=== PATIENT | male | born 1970 | race Asian ===

== ENCOUNTER → 2017-09-01 10:53 | Outpatient (CLI) | payer BC, SELFPAY ==
[2017-09-01 11:29] LABS: Bacteria 0 SEEN /hpf (None Seen); Mucous, Urine 0 SEEN /hpf (<or=2+); White Blood Cells 0 SEEN /hpf (0-5)
[2017-09-01 11:40] LABS: Color, Urine Yellow (Yellow); Glucose, Dipstick Normal (Normal); Ketone-Dipstick 5 mg/dl (Negative); Leukocyte Esterase-Dipstick Negative /ul (Negative); Nitrite-Dipstick Negative (Negative); Occult Blood-Urine 25 /ul (Negative); Protein-Dipstick Negative (Negative); Urine Bilirubin Dipstick Negative (Negative); Urine Clarity Clear (Clear); Urine Urobilinogen Normal (Normal)
[2017-09-01 11:54] LABS: Red Blood Cells-Urine 0-5 SEEN /hpf (0-5); Squamous Epithelial Cells - UA 0-5 SEEN /hpf (0-5)
== END ==
PROVIDERS: Family Provider Internal Medicine; PCP Internal Medicine; Visit Provider Internal Medicine
DX: N39.0 Urinary tract infection, site not specified (principal)
CPT/HCPCS: 81001

== ENCOUNTER → 2017-09-04 09:20 | Outpatient (CLI) | payer BC, MEDICAID, SELFPAY ==
[2017-09-04 13:09] LABS: Chlamydia Trachomatis by PCR Negative (Negative); Neisserai gonorrhoeae by PCR Negative (Negative); Probe Check PASS; Sample Adequacy Control PASS; Specimen Processing Control PASS
== END ==
PROVIDERS: Family Provider Internal Medicine; PCP Internal Medicine; Visit Provider Internal Medicine
DX: N48.89 Other specified disorders of penis (principal); R30.9 Painful micturition, unspecified
CPT/HCPCS: 87491; 87591

== ENCOUNTER → 2018-02-15 08:17 | Outpatient (CLI) | payer OTHER, MEDICAID, SELFPAY ==
--- NOTE | 2018-02-15 08:20 | RAD_ITS ---
STUDY: X-RAY - RIGHT KNEE REASON FOR EXAM: Male, 47 years old. Lateral knee pain. TECHNIQUE: 4 weightbearing view(s) of the knee. COMPARISON: None available. FINDINGS: Normal visualized distal femur. Normal visualized proximal tibia and fibula. Normal proximal tibiofibular articulation. Normal medial femorotibial compartment. Normal lateral femorotibial compartment. Normal patellofemoral articulation. The soft tissue structures visualized appear nonacute. No suprapatellar joint effusion identified. RAD/Knee 4 or More Views IMPRESSION: Nonacute x-ray examination of the knee. If symptoms persist, recommend repeat exam in 14 days to demonstrate any radiographic occult fracture. Electronically Signed: Irving Nguyen, at 13:49 EDT Tel , Service support ,
== END ==
PROVIDERS: Family Provider Internal Medicine; PCP Internal Medicine; Visit Provider Physician Assistant
DX: M25.561 Pain in right knee (principal)
CPT/HCPCS: 73564

== ENCOUNTER 2018-04-14 10:00 | Outpatient (RCR) | payer OTHER, MEDICAID, SELFPAY ==
--- NOTE | 2018-03-02 09:11 | HP.PTEVAL ---
Patient's Visit Information SOFIYA ANDERSON is a 47 year old M referred to Physical Therapy by ETHEL Wharton with a diagnosis of R IT band syndrome. Date of Evaluation: 03/02/18 Physical Therapist: Christopher Austin PT, - Visit Plan Frequency: 2x /Week Duration: 3 Weeks Plan: B LE stretching (IT band), B LE strengthening, core stab ex's, bike, HEP - Subjective Subjective: Pt reports he has had R hip pain for a long time. Pt reports he also has L hip pain, and LBP. Pt reports he stands most of his day at work, and believes this may be causing his pain. Pt also reports he has difficulty with squatting activity secondary to lateral R knee pain. Pt reports he has to rub out that area in order to stand up after squatting. Pt reports he has had xrays taken on the knee which had no positive findings. No sleep difficulty secondary to pain. No PMHx. Pt reports his R leg is shorter than his L. 0/10 pain at rest, 2/10 pain at rest. - Pain R hip Pain Intensity (Out of 10): 0 Pain Intensity Range: 2 - Objective Neuro: B LE sensation is WNL to light touch. B patellar reflex= 2/3. Palpation: Pt is sore on the lateral aspect of R knee. Obvious crepitus with AROM. No obvious deformity. ROM: B LE's are WNL. MMT: B LE's are 4+/5. Special tests: No positive findings this date - Goals Goal 1:: Decrease R hip pain x 50% to aid with IADL's Goal Time Frame: 2-4 Weeks Goal 2:: Increase R LE flexibility x 1 grade to aid with decreasing pain Goal Time Frame: 2-4 Weeks Goal 3:: I with HEP Goal Time Frame: 2-4 Weeks - Rehabilitation Potential Physical Therapy Diagnosis: Pt has R hip pain, weakness, and diff with prolonged standing secondary to R IT band syndrome Rehabilitation Potential: Good - Anticipated Interventions Patient/Client Instruction: Educate patient on: Condition, Plan of Care For the Purpose of:: To improve self management Therapeutic Exercise to Include: Strength training, Endurance training, Postural training, Flexibilty training, Dynamic Lumbar Stabilization For the Purpose of:: To decrease pain, To improve muscle performance and motor function Cryotherapy (ice pack, ice massage): Yes Thermo therapy (hot pack): Yes Ultrasound (thermal/non thermal): Yes For the Purpose of:: To decrease pain Thank you for the opportunity to evaluate your patient. For Medicare and Medicare HMO plans, please review the plan of care and approve it. It will need to be FAXED BACK to us at [phone] for Medicare purposes. Please let me know if there are questions or concerns regarding this plan of care. Physician Signature: Date:
--- NOTE | 2018-06-01 13:55 | HP.PTDCSUM ---
HP - PT D/C Summary It has been my pleasure to treat SOFYIA ANDERSON under orders from ETHEL Wharton, for the diagnosis of R IT band syndrome for a total of 6 visit(s). Discharge Date: Please see the following information for a summary of their discharge status. - Subjective Subjective: Pt is ready for discharge. No pain this date - Pain R hip Pain Intensity (Out of 10): 0 - Overall Improvement % Improvement: 70 - Objective Objective/Function: 0/10 pain at this time. LE flexibility cont's to improve. Pt is I with HEP. Rx goals achieved - Goals Goal 1:: Decrease R hip pain x 50% to aid with IADL's Goal Progress: Goal Met Goal 2:: Increase R LE flexibility x 1 grade to aid with decreasing pain Goal Progress: Goal Met Goal 3:: I with HEP Goal Progress: Goal Met - Plan Plan: Discharge - D/C Information If there are questions or concerns regarding this patient's physical therapy, please feel free to call me at [phone]. Thank you for the referral of this patient. Sincerely, Christopher Austin, PT, ATC
== END 2018-04-14 19:00 | disposition home or self-care (01) ==
LOC: PT 10:00
PROVIDERS: Family Provider Internal Medicine; PCP Internal Medicine; Referring Provider Physician Assistant; Visit Provider Physician Assistant
DX: M76.31 Iliotibial band syndrome, right leg (principal)
CPT/HCPCS: 97110; 97161; 97530

== ENCOUNTER → 2018-12-17 10:50 | Outpatient (CLI) | payer OTHER, SELFPAY ==
[2018-12-17 10:42] VITALS: BMI 32.5
--- NOTE | 2018-12-17 10:50 | RAD_ITS ---
STUDY: X-RAY - RIGHT KNEE REASON FOR EXAM: Male, 48 years old. Atraumatic pain TECHNIQUE: 4 view(s) of the knee. COMPARISON: None. FINDINGS: Normal visualized distal femur. Normal visualized proximal tibia and fibula. Normal proximal tibiofibular articulation. Normal medial femorotibial compartment. Normal lateral femorotibial compartment. Normal patellofemoral articulation. The soft tissue structures are unremarkable. RAD/Knee 4 or More Views IMPRESSION: Normal x-ray examination of the knee. Electronically Signed: Colin Escobedo, at 18:10 EDT Tel , Service support ,
--- NOTE | 2018-12-17 10:50 | RAD_ITS ---
STUDY: X-RAY - LEFT KNEE REASON FOR EXAM: Male, 48 years old. Pain no injury TECHNIQUE: 4 view(s) of the knee. COMPARISON: None. FINDINGS: Normal visualized distal femur. Normal visualized proximal tibia and fibula. Normal proximal tibiofibular articulation. Normal medial femorotibial compartment. Normal lateral femorotibial compartment. Normal patellofemoral articulation. The soft tissue structures are unremarkable. RAD/Knee 4 or More Views IMPRESSION: Normal x-ray examination of the knee. Electronically Signed: Colin Escobedo, at 17:18 EDT Tel , Service support ,
== END ==
PROVIDERS: Family Provider Internal Medicine; PCP Internal Medicine; Referring Provider Physician Assistant; Visit Provider Physician Assistant
DX: M25.562 Pain in left knee (principal)
CPT/HCPCS: 73564

== ENCOUNTER → 2019-06-13 15:38 | Outpatient (CLI) | payer OTHER, SELFPAY ==
[2019-06-07 14:14] VITALS: BMI 31.9
--- NOTE | 2019-06-13 15:38 | CT_ITS ---
STUDY: CT ABDOMEN AND PELVIS WITH CONTRAST REASON FOR EXAM: Male, 48 years old. BILAT GROIN PAIN RADIATION DOSAGE (If Supplied By Facility): CTDIvol = ( 19.83 ) mGy, DLP = ( 1530.79 ) mGycm TECHNIQUE: Transaxial images were obtained from the dome of the diaphragm to the symphysis pubis without oral contrast. Oral and amp; IV Gastrografin and amp; 100mL Isovue-300 was administered. Sagittal and coronal images were reconstructed. Individualized dose optimization techniques were used for this CT. COMPARISON: 08/25/2013. FINDINGS: The visualized lung bases are unremarkable. The visualized portions of the heart are within normal limits. Normal liver. There is non-visualization of the gallbladder, which may be secondary to either contraction or a prior cholecystectomy. Normal spleen. Normal pancreas. Normal bilateral adrenal glands. Normal right kidney. Normal left kidney. Normal visualized stomach. Normal small intestine. Scattered diverticulosis throughout the colon with no signs of diverticulitis. The appendix is visualized and appears normal. Normal abdominal aorta. Normal inferior vena cava. Normal retroperitoneum. Decompressed urinary bladder. Normal visualized prostate gland. Minimal fat-containing umbilical hernia. Normal osseous structures. CT/Abdomen/Pelvis WITH Contrast IMPRESSION: Mild diverticulosis with no signs of diverticulitis. No acute appendicitis or bowel obstruction. Nonvisualized gallbladder, remainder of the abdominal viscera are unremarkable. Electronically Signed: Cristine Grant MD at 4:00 EST , Service support ,
== END ==
PROVIDERS: PCP Internal Medicine; Referring Provider Surgery; Visit Provider Surgery
DX: R10.31 Right lower quadrant pain (principal); R10.32 Left lower quadrant pain
CPT/HCPCS: 74177; Q9967

== ENCOUNTER 2019-07-07 07:57 | Day surgery (SDC) | payer OTHER, SELFPAY ==
[2019-06-07 14:14] VITALS: BMI 31.9
[2019-07-01 15:59] VITALS: BMI 32.8
[2019-07-07] MEDS: Lidocaine Jelly 2% 20 ML Syringe (URO-JET) 20 APPLIC (08:15)
[2019-07-07 08:19] VITALS: BP 137/98; PULSE 72; RESP 16; TEMP 36.3; O2SAT 98
== END 2019-07-07 09:04 | disposition home or self-care (01) ==
LOC: EN 07:57
PROVIDERS: PCP Internal Medicine; Referring Provider Internal Medicine; Visit Provider Surgery
PROC: F00ZJWZ Instrumental Swallowing and Oral Function Assessment using Swallowing Equipment (ICD-10-PCS; CPT 43235; principal; 2019-07-07 07:55)
DX: K21.9 Gastro-esophageal reflux disease without esophagitis (principal)
CPT/HCPCS: 91010

== ENCOUNTER 2019-07-15 06:55 | Day surgery (SDC) | payer OTHER, SELFPAY ==
[2019-06-07 14:14] VITALS: BMI 31.9
[2019-07-01 15:59] VITALS: BMI 32.8
[2019-07-15] VITALS (8 sets, daily range): BP systolic 94–122; BP diastolic 69–91; PULSE 72–98; RESP 16–18; TEMP 36.2–37.1; O2SAT 92–98; BMI 35.0
[2019-07-15] MEDS: Lactated Ringers 1,000 ML 100 ML IV (07:29)
--- NOTE | 2019-07-15 08:00 | IMM_PTH ---
PATIENT: HILL ANDERSON LOC: [facility] U#:[id number] AGE/SX: 49/M ROOM: RE07/15/[address]: Dr. Adrián Thibodeaux MD : 1970 BED: DIS: 07/15/2019 SPEC #: [id number] RECD: 07/15/19 14:57 STATUS: KAYLEE RERossana #: [id number] SHANNON: 07/15/19 08:[address]: Adrián Thibodeaux DEPT: IMMUNOHISTOCHEMISTRY RECD BY: Chasidy Perkins ENTERED: 07/15/19 14:58 SP TYPE: IMMUNO OTHR DR: Dr. Mckinley Villareal MD Tissues: A - Stomach, NOS Procedures: H Pylori (initial) PHYSICIAN & INSTITUTION [place] [address] SPECIMEN INFORMATION: Tissue Source: A - Antrum biopsy Clinical Info: GERD Specimen Number: [id number] CPT code: 76747 METHODOLOGY: Deparaffinized sections of prefer/formalin-fixed tissue or PAP/DQ stained slides are incubated with monoclonal/polyclonal antibodies/oligonucleotide probes. Localization is made via biotin free immunoperoxidase method. Appropriate controls are performed and reacted as expected. Results on target cell population are indicated in the following table: RESULTS: ANTIBODY / CLONE RESULT Block A H Pylori (polyclonal) negative These tests were developed and their performance characteristics determined by [facility]. They may not have been cleared or approved by the U.S. Food and Drug Administration. The FDA has determined that such clearance or approval is not necessary. The above immunohistochemical/dualISH markers are ordered and reviewed by the Pathologist. INTERPRETATION: A. Antrum biopsy: Negative for Helicobacter pylori organisms. AM:kate 07/18/19
--- NOTE | 2019-07-15 08:00 | EGD_PTH ---
PATIENT: HILL ANDERSON LOC: [facility] U#:[id number] AGE/SX: 49/M ROOM: RE07/15/[address]: Dr. Adrián Thibodeaux MD : 1970 BED: DIS: 07/15/2019 SPEC #: [id number] RECD: 07/15/19 13:24 STATUS: KAYLEE SURI #: [id number] SHANNON: 07/15/19 08:[address]: Adrián Thibodeaux DEPT: SURGICAL PATHOLOGY RECD BY: Andres Morris ENTERED: 07/15/19 13:44 SP TYPE: EGD BIOPSY GREG DR: Dr. Mckinley Villareal MD Tissues: A - Gastric mucous membrane B - Esophageal mucous membrane Procedures: Surgery Specimen Level IV HEADER OPERATION: EGD - PH probe ([employer]) PRE-OP DIAGNOSIS: GERD TISSUE SUBMITTED: A - Antrum biopsy for histo and H. pylori, B - Distal esophagus biopsy MICROSCOPIC DIAGNOSIS A. Gastric antrum, biopsy: Chronic gastritis. See comment. B. Distal esophagus, biopsy: Fragments of benign squamous mucosa with focal changes of reflux. AM:kate 07/18/19 COMMENT A. The results of immunohistochemistry for Helicobacter pylori will be reported separately ([id number]). MICROSCOPIC DESCRIPTION Slides are reviewed. GROSS DESCRIPTION A - Received in fixative is one container labeled with the patient's name and designated antrum biopsy. The specimen consists of multiple irregular fragments of light carbajal soft tissue that in aggregate measure 0.6 x 0.3 x 0.1 cm. The specimen is totally submitted in one cassette. B - Received in fixative is one container labeled with the patient's name and designated distal esophagus biopsy. The specimen consists of one irregular fragment of light carbajal soft tissue that measures 0.3 x 0.3 x 0.1 cm. The specimen is totally submitted in one cassette. / SJ:kate 07/15/19 TC:3 CPT: 60826 x2
--- NOTE | 2019-07-15 08:02 | H&P.OPEN ---
History of Present Illness Date of Admission: 07/15/19 The patient is a 49 year old M who has seen me in the office for severe reflux. The patient had manometry performed already and is here for EGD with pH probe. Past Medical/Surgical History - Planned Operation Planned Operative Procedure/s: GD W/ 49 HR PH PROBE PLACEMENT Date of Operative Procedure: 07/15/19 Permit Signed: Yes S.O.S: No - Previous Hospitalizations/Surgeries HX Hospitalizations: No HX of Surgeries: tonsillectomy, appy, gallbladder. COLONOSCOPY/EGD 2017 Any Problems With Anesthesia: No You/Your Family Experience Fever (Hyperthermia) With Anes: No Cholinesterase deficiency: No - Cardiovascular Hx Chest Pain within Last 2 months: No Hx of Irregular Heartbeat and/or Afib: No Hx Heart Attack: No Hx Congestive Heart Failure: No Hx Rheumatic Fever: No Hx Hypertension: No Hx Internal Defibrillator: No Hx Pacemaker: No Hx Cardiac Catheterization: No Hx Cardiac Surgery/Stents/Etc.: No Hx Stress Test: Yes - 2016, [facility], negative HX Edema: No Hx Pain in Legs when Walking/Leg Cramps: No - Respiratory Chronic Cough: No HX of Shortness of Breath: No Hoarseness: No Hx Chronic Obstructive Pulmonary Disease (COPD): No Hx Asthma: No Hx Emphysema: No Hx Sleep Apnea: No Hx Oxygen Use at Home: No Hx Respiratory Tract Infection/Cold (presently): No Do You Snore Loudly (louder than talking or can be heard): Yes Do You Often Feel Tired/ Fatigued/ Sleepy Dring Daytime?: No Has Anyone Observed You Stop Breathing During Sleep?: No Result (for STOP score): Negative Hx Smoking: Yes Smoking Status: Former smoker - Gastrointestinal Hx Gastroesophageal Reflux: Yes Controlled With Meds: Yes - takes omeprazole Hx Gastrointestinal Disorders: - constipation Hx Gastrointestinal Bleed: No Hx Ulcer: Yes Hx Hiatal Hernia: No Difficulty Chewing/Swallowing: No Recent Onset of Swallowing Problems: No Special diet followed at home: No Hx Unplanned Weight Loss of 20#: No HX Unplanned Weight Gain of 20#: No - Neurological Hx Seizures: No HX Syncope/Blackout Spells/Unconsciousness: No Hx CVA/Stroke: No Hx Transient Ischemic Attacks (TIA): No Hx Multiple Sclerosis: No Hx Parkinson's Disease: No Hx Head/Neck Injury: No Hx Headaches: Yes Hx Back Injury/Pain: Yes Recent Onset of Speech Difficulty: No Restless Legs: No Does patient have nerve stimulator: No - Blood Disorder Hx Leukemia: No Bleeding Tendencies: No Hx Deep Vein Thrombosis: No Hx High Cholesterol: No Blood Transmitted Disease: No Hx Hepatitis: No Hx Cirrhosis: No Hx Anemia: No Hx Blood Disorders: No - Genitourinary Hx Renal Disease: No - Musculoskeletal Hx Arthritis: No Hx Rheumatoid Arthritis: No Hx Gout: No Recent Onset of an Orthopedic Problem: No - Endocrine Hx Diabetes: No Thyroid Disease: No Hx Steroid Therapy: No - Psycho/Social Hx Substance Use: No Hx Alcohol Use: No Hx Anxiety: No Hx Depression: No - Miscellaneous Hx Cancer: No Recent Exposure to Contagious Disease: No Active MRSA: No Hx of C-Diff: No Any Loose Teeth: No Allergies No Known Allergies Allergy (Verified 07/15/19 07:18) mother Family History: Family History (Last Reviewed 07/01/19 @ 15:59 by Matt Whittaker) Mother Asthma Hypertension Father Kidney disease CVA (cerebral vascular accident) Daughter Asthma Hypertension father Family History: Family History (Last Reviewed 07/01/19 @ 15:59 by Matt Whittaker) Mother Asthma Hypertension Father Kidney disease CVA (cerebral vascular accident) Daughter Asthma - - Discharge Is Pt Admitted From a Senior Care, or a Residential: No Who Could Help: SMILEY After D/C, Where Do you Plan to Go: Return Home - Physical Exam Vitals/I&O's: Vital Signs Temp Pulse Resp BP Pulse Ox 98.8 F 98 18 122/91 H 98 07/15/19 07:21 07/15/19 07:21 07/15/19 07:21 07/15/19 07:21 07/15/19 07:21 Oxygen Delivery Method Room Air Weight: 216 lb 14.958 oz Body Mass Index (BMI) 35.0 General: Alert, Oriented x3 Neck: No JVD Lungs: Normal air movement Cardiovascular: Regular rate, Regular Rhythm Abdomen: Soft, Non Tender, Non-Distended Current Medications Lactated Ringer's () 1,000 mls @ 100 mls/hr IV .Q10H DELON Last Admin: 07/15/19 07:29 Dose: 100 mls/hr Documented by: Assessment/Plan All Active Problems (Last Reviewed 07/01/19 @ 15:59 by Matt Whittaker) Acute bronchitis (Acute) Micturition painful (Acute) Upper respiratory disease (Acute) Constipation (Acute) 49-year-old male severe GERD 1. Patient have an artery which showed an increased LES pressure as well as decreased swallow function. Plan for EGD with pH probe. 2. I explained endoscopy in detail to the patient. I explained the risks including but not limited to stroke or heart attack with anesthesia, perforation of the GI tract, bleeding, infection. I explained that any of these could necessitate further emergency surgery. The patient understands and all questions were answered sufficiently. The patient wishes to proceed with procedure. Adrián Thibodeaux MD Pager: [facility] [address] [place] [address] [address] [place] [address] Office: Surgery Risks - Colonoscopy Risks Include but are not Limited To: Risks include but are not limited to: Bleeding, perforation requiring further surgery, inability to complete colonoscopy requiring barium enema.
--- NOTE | 2019-07-15 08:26 | OP.CCLET_ITS ---
07/15/2019 Mckinley Villareal MD [address] [place] [address] [place] [address] Re : Upper GI endoscopy procedure for Sánchez Saunders Dear Dr. Villareal This procedure was performed on Monday, July 15, 2019. My impressions and recommendations are as follows: Impressions : - Normal. Biopsied. - Gastritis. Biopsied. - Normal examined duodenum. - The MCCARTHY pH capsule was positioned 36 cm from the incisors, which was 6 cm proximal to the GE junction. Recommendations : - Discharge patient to home. - Resume previous diet. - Continue present medications. - Return to my office in 2 weeks. My findings are described in the full procedure note, which is enclosed. If I can be of further assistance, please feel free to contact me at Doctor phone number(s): , Work: . Sincerely, Adrián Thibodeaux MD 07/15/2019 8:26:25 AM This report has been signed electronically.
--- NOTE | 2019-07-15 08:26 | OP.EGD_ITS ---
Patient Name: Sánchez Saunders Procedure Date: 07/15/2019 7:38 AM Date of : 1970 Age: 49 Procedure: Upper GI endoscopy Indications: Suspected gastro-esophageal reflux disease Providers: Adrián Thibodeaux MD Referring MD: Adrián Thibodeaux MD Medicines: Monitored Anesthesia Care Patient Profile: This is a 49 year old male. Refer to note in patient chart for documentation of history and physical. Complications: No immediate complications. Estimated blood loss: Minimal. Procedure: Pre-Anesthesia Assessment: - Prior to the procedure, a History and Physical was performed, and patient medications and allergies were reviewed. The patient's tolerance of previous anesthesia was also reviewed. The risks and benefits of the procedure and the sedation options and risks were discussed with the patient. All questions were answered, and informed consent was obtained. Prior Anticoagulants: The patient has taken no previous anticoagulant or antiplatelet agents. After reviewing the risks and benefits, the patient was deemed in satisfactory condition to undergo the procedure. After obtaining informed consent, the endoscope was passed under direct vision. Throughout the procedure, the patient's blood pressure, pulse, and oxygen saturations were monitored continuously. The gastroscope was introduced through the mouth, and advanced to the third part of duodenum. The upper GI endoscopy was accomplished without difficulty. The patient tolerated the procedure well. Scope In: 8:10:01 AM Scope Out: 8:15:50 AM Total Procedure Duration Time 0 hours 5 minutes 49 seconds Findings: The in the esophagus was normal. Biopsies were taken with a cold forceps for histology. Moderate inflammation was found in the entire examined stomach. Biopsies were taken with a cold forceps for Helicobacter pylori testing. The examined duodenum was normal. The MCCARTHY capsule with delivery system was introduced through the mouth and advanced into the esophagus, such that the MCCARTHY pH capsule was positioned 36 cm from the incisors, which was 6 cm proximal to the GE junction. Suction was applied to the well of the MCCARTHY pH capsule to suck in the adjacent mucosa of the esophagus using the external vacuum pump set at a minimum vacuum pressure of 550 mmHg for 30 seconds. The MCCARTHY pH capsule was then deployed by depressing the plunger on top of the handle to advance the locking pin into the mucosa, thereby attaching the capsule to the esophagus. The plunger was then rotated a quarter turn clockwise to release the capsule from the delivery system. The delivery system was then withdrawn. Endoscopy was utilized for probe placement and diagnostic evaluation. Impression: - Normal. Biopsied. - Gastritis. Biopsied. - Normal examined duodenum. - The MCCARTHY pH capsule was positioned 36 cm from the incisors, which was 6 cm proximal to the GE junction. Recommendation: - Discharge patient to home. - Resume previous diet. - Continue present medications. - Return to my office in 2 weeks. Procedure Code(s): --- Professional --- 61336, Esophagogastroduodenoscopy, flexible, transoral; with biopsy, single or multiple 03773, 51, Esophagus, gastroesophageal reflux test; with mucosal attached telemetry pH electrode placement, recording, analysis and interpretation Diagnosis Code(s): --- Professional --- K29.70, Gastritis, unspecified, without bleeding CPT copyright 2017 [employer] [place] [employer]. All rights reserved. The codes documented in this report are preliminary and upon paste mixing supervisor review may be revised to meet current compliance requirements. Adrián Thibodeaux MD 07/15/2019 8:26:25 AM This report has been signed electronically. Number of Addenda: 0 Note Initiated On: 07/15/2019 7:38 AM
== END 2019-07-15 09:10 | disposition home or self-care (01) ==
LOC: EN 06:56 → AC 06:57
PROVIDERS: PCP Internal Medicine; Referring Provider Surgery; Visit Provider Surgery
PROC: (CPT 43239; principal; 2019-07-15 07:55)
DX: K29.70 Gastritis, unspecified, without bleeding (principal); K21.9 Gastro-esophageal reflux disease without esophagitis; K59.00 Constipation, unspecified; R30.0 Dysuria; Z87.891 Personal history of nicotine dependence
CPT/HCPCS: 43239; 91035; 88305; 88342; J7120; A4216; J2405

== ENCOUNTER → 2019-11-01 10:38 | Outpatient (CLI) | payer OTHER, SELFPAY ==
[2019-11-01 09:59] VITALS: BMI 35.0
--- NOTE | 2019-11-01 10:40 | RAD_ITS ---
STUDY: X-RAY - LUMBAR SPINE REASON FOR EXAM: Male, 49 years old. Lumbar radiculopathy TECHNIQUE: 3 view(s) of the lumbar spine were obtained. COMPARISON: None FINDINGS: Normal lumbar lordosis. There is no substantial scoliosis. There is a normal alignment of the vertebrae. Normal vertebral bodies and endplates. Normal disc space heights. The soft tissue structures are unremarkable. RAD/Lumbar Spine 2 or 3 Views IMPRESSION: Normal x-ray examination of the lumbar spine. Electronically Signed: Jude Ramon MD at 11:13 EDT , Service support ,
--- NOTE | 2019-11-01 10:40 | RAD_ITS ---
STUDY: X-RAY - CERVICAL SPINE REASON FOR EXAM: Male, 49 years old. Chronic neck pain TECHNIQUE: 3 view(s) of the cervical spine were obtained. COMPARISON: None FINDINGS: Normal anterior atlantoaxial articulation. Normal odontoid process. Normal cervical lordosis. Normal vertebral bodies and endplates. Normal disc space heights. Normal visualized intervertebral neuroforamina. The soft tissue structures are unremarkable. RAD/Cerv Spine 2 or 3 Views IMPRESSION: Normal x-ray examination of the visualized cervical spine. Electronically Signed: Jude Ramon MD at 11:13 EDT , Service support ,
== END ==
PROVIDERS: PCP Internal Medicine; Referring Provider Internal Medicine; Visit Provider Internal Medicine
DX: M54.2 Cervicalgia (principal); G89.29 Other chronic pain; M54.16 Radiculopathy, lumbar region
CPT/HCPCS: 72040; 72100

== ENCOUNTER → 2020-07-12 10:48 | Outpatient (CLI) | payer OTHER, SELFPAY ==
[2020-07-12 10:23] VITALS: BMI 36.6
[2020-07-12 12:17] LABS: Erythrocyte Sedimentation Rate 30 mm/hr (0-20)
[2020-07-12 12:19] LABS: Absolute Lymphocyte Count 2.03 X10^3/uL (0.83-4.51); Absolute Neutrophil Count 2.3 X10^3/uL (2.0-7.7); Basophil# 0.04 X10^3/uL; Basophil% 0.8 % (0-1); Eosinophil# 0.22 X10^3/uL; Eosinophils% 4.4 % (0-5); Hematocrit 44.5 % (40-54); Hemoglobin 15.2 g/dL (13.0-16.5); Lymphocyte # 2.03 X10^3/ul (4.0); Lymphocyte % 40.6 % (19-41); Mean Corp Hgb Conc 34.2 g/dL (32-36); Mean Corpuscular Hgb 29.2 pg (27.0-32.0); Mean Corpuscular Volume 85.4 fL (80-94); Mean Platelet Vol. 10.5 fl (6.2-12.0); Monocyte# 0.43 X10^3/uL; Monocyte% 8.6 % (0-10); NRBC Flagged by Analyzer 0 % (0-5); Neutrophil # 2.27 X10^3/uL (2.7-7.7); Neutrophil % 45.4 % (47-70); Platelet Count 256 K/mm3 (150-450); RBC Distribution Width CV 13.5 % (11.6-14.6); RBC Distribution Width SD 41.5 fl (35.1-43.9); Red Blood Count 5.21 M/mm3 (4.6-6.2)
[2020-07-12 12:29] LABS: ALB/GLOB Ratio 0.9 RATIO (0.9-2.4); AST(SGOT) 19 U/L (15-37); Alanine Aminotransfer ALT/SGPT 40 U/L (16-61); Albumin, Serum 3.7 g/dL (3.2-5.0); Alkaline Phosphatase 79 U/L (45-117); Anion Gap 6 (5-15); BUN 16 mg/dL (7-18); BUN/Creat Ratio 14.3 RATIO (10-20); CRP 5.13 mg/L (0.0-3.0); Calcium,Total 8.9 mg/dL (8.5-10.1); Chloride 108 mmol/L (98-107); Cholesterol 226 mg/dL (200); Creatinine, Serum 1.12 mg/dL (0.70-1.30); EST Glomerular Filtration Rate 74 mL/min (>60); Est Glom Filt Rate - Afr Amer 90 mL/min (>60); Globulin 4.1 g/dL (2.2-4.2); Glucose 109 mg/dL (74-106); High Density Lipoprotein 33 mg/dL; Protein, Total 7.8 g/dL (6.4-8.2); Rheumatoid Factor < 10.0 IU/mL (<15); Sodium Level 139 mmol/L (136-145); Thyroid Stim Hormone (TSH) 3.56 uIU/mL (0.358-3.74); Triglycerides 202 mg/dL; Very Low Density Lipoprotein 40 mg/dL (5-40)
[2020-07-12 12:53] LABS: Vitamin D,25 Hydroxy 11.8 ng/mL
[2020-07-13 16:37] LABS: ANTINUCLEAR ANTIBODIES DIRECT Negative (Negative)
== END ==
PROVIDERS: PCP Internal Medicine; Referring Provider Nurse Practitioner Family; Visit Provider Nurse Practitioner Family
DX: Z00.00 Encounter for general adult medical examination without abnormal findings (principal); F41.8 Other specified anxiety disorders; M25.50 Pain in unspecified joint
CPT/HCPCS: 36415; 80053; 80061; 82306; 84443; 85025; 85652; 86038; 86140; 86225; 86235; 86431

== ENCOUNTER 2021-07-16 10:12 | Outpatient (CLI) | payer OTHER, SELFPAY ==
[2021-07-16 12:27] LABS: Absolute Lymphocyte Count 1.83 X10^3/uL (0.83-4.51); Absolute Neutrophil Count 2.7 X10^3/uL (2.0-7.7); Basophil# 0.02 X10^3/uL; Basophil% 0.4 % (0-1); Eosinophil# 0.33 X10^3/uL; Eosinophils% 6.1 % (0-5); Hematocrit 44.8 % (40-54); Hemoglobin 14.7 g/dL (13.0-16.5); Lymphocyte # 1.83 X10^3/ul (0.83-4.51); Mean Corp Hgb Conc 32.8 g/dL (32-36); Mean Corpuscular Hgb 28.7 pg (27.0-32.0); Mean Corpuscular Volume 87.5 fL (80-94); Mean Platelet Vol. 10.2 fl (6.2-12.0); Monocyte% 9.3 % (0-10); NRBC Flagged by Analyzer 0 % (0-5); Neutrophil # 2.69 X10^3/uL (2.7-7.7); Platelet Count 255 K/mm3 (150-450); RBC Distribution Width CV 13.8 % (11.6-14.6); Red Blood Count 5.12 M/mm3 (4.6-6.2); White Blood Count 5.4 K/mm3 (4.4-11.0)
[2021-07-16 13:24] LABS: ALB/GLOB Ratio 0.9 RATIO (0.9-2.4); AST(SGOT) 19 U/L (15-37); Alanine Aminotransfer ALT/SGPT 38 U/L (16-61); Albumin, Serum 3.6 g/dL (3.2-5.0); Alkaline Phosphatase 75 U/L (45-117); Anion Gap 2 (5-15); BUN 13 mg/dL (7-18); BUN/Creat Ratio 10.5 RATIO (10-20); Calcium,Total 8.9 mg/dL (8.5-10.1); Chloride 108 mmol/L (98-107); Cholesterol 201 mg/dL (200); Creatinine, Serum 1.24 mg/dL (0.70-1.30); EST Glomerular Filtration Rate 66 mL/min (>60); Est Glom Filt Rate - Afr Amer 79 mL/min (>60); Globulin 4.1 g/dL (2.2-4.2); Glucose 120 mg/dL (74-106); High Density Lipoprotein 26 mg/dL; Potassium 4.4 mmol/L (3.5-5.1); Protein, Total 7.7 g/dL (6.4-8.2); Sodium Level 138 mmol/L (136-145); Thyroid Stim Hormone (TSH) 2.67 uIU/mL (0.358-3.74); Triglycerides 435 mg/dL
== END 2021-07-16 23:59 | disposition home or self-care (01) ==
LOC: BIMLAB 10:13
PROVIDERS: PCP Internal Medicine; Referring Provider Nurse Practitioner Family; Visit Provider Nurse Practitioner Family
DX: Z00.00 Encounter for general adult medical examination without abnormal findings (principal); Z12.5 Encounter for screening for malignant neoplasm of prostate
CPT/HCPCS: 36415; 80053; 80061; 84153; 84443; 85025; G0103

== ENCOUNTER → 2021-12-11 | Outpatient (CLI) | payer OTHER, SELFPAY ==
--- NOTE | 2021-12-11 10:06 | RAD_ITS ---
INDICATION: chronic hip pain EXAMINATION/TECHNIQUE: X-RAY - BILATERAL XR Hips Bilateral with Pelvis when performed; 2 Views COMPARISON: None. FINDINGS: PELVIC BONES: No displaced fracture, destructive or sclerotic lesions. Note that overlapping bowel shadows may however obscure fine detail. Sacroiliac joints are unremarkable. No widening of the pubic symphysis. HIPS: The articular structures are unremarkable. No displaced fracture seen in this frontal view. SOFT TISSUES: No soft tissue swelling or gas. RAD/Hips B/L min 2 views w/ Pelvis IMPRESSION: No evidence of displaced pelvic or hip fracture. Electronically Signed: Levon Daniels MD at 13:00 EDT ,
== END | disposition home or self-care (01) ==
LOC: MTRAD 10:05
PROVIDERS: PCP Internal Medicine; Referring Provider Nurse Practitioner Family; Visit Provider Nurse Practitioner Family
DX: M25.559 Pain in unspecified hip (principal); G89.29 Other chronic pain
CPT/HCPCS: 73521

== ENCOUNTER → 2022-02-11 | Outpatient (CLI) | payer OTHER, SELFPAY ==
--- NOTE | 2022-02-11 07:52 | US_ITS ---
STUDY: SCROTUM ULTRASOUND REASON FOR EXAM: Male, 51 years old. Bilateral testicular pain, left greater than right. TECHNIQUE: Ultrasound evaluation of the scrotum was performed with color Doppler and static holguin-scale imaging. COMPARISON: Testicular ultrasound, 08/12/2013. FINDINGS: RIGHT TESTICLE INTRATESTICULAR: There is a normal size of the right testicle. The right testicle measures 4.3 x 3.2 x 2.6 cm. There is a homogenous echotexture. There is normal arterial and normal venous vascularity. There is no demonstrated right testicular mass or cyst. EXTRATESTICULAR: The epididymis is normal in size. The epididymis head measures 0.5 x 1.1 x 1.0 cm. There is normal vascularity of the epididymis. There is no demonstrated epididymal cystic structure. There is a small hydrocele. There is no demonstrated varicocele. There is no demonstrated extratesticular mass or cyst. LEFT TESTICLE INTRATESTICULAR: There is a normal size of the left testicle. The left testicle measures 3.9 x 2.5 x 2.3 cm. There is a heterogeneous echotexture. There is normal arterial and normal venous vascularity. There is no demonstrated left testicular mass or cyst. EXTRATESTICULAR: Nonvisualization the epididymal head. Patient relates a history of surgery on his left epididymis is unsure of what the procedure in detail. There is no demonstrated epididymal cystic structure. There is a small hydrocele. There is no demonstrated varicocele. There is no demonstrated extratesticular mass or cyst. US/Testicular with Arterial Flow IMPRESSION: 1. Normal right testicle and epididymis. 2. Heterogenous left testicle without distinct mass. 3. Nonvisualization of the left epididymal head. 4. Small left hydrocele. Electronically Signed: Aron Joy DO at 17:00 EDT ,
== END | disposition home or self-care (01) ==
LOC: US 07:43
PROVIDERS: PCP Internal Medicine; Visit Provider Nurse Practitioner Family
DX: N50.811 Right testicular pain (principal); N50.812 Left testicular pain; N43.3 Hydrocele, unspecified; G89.29 Other chronic pain
CPT/HCPCS: 76870; 93976

== ENCOUNTER → 2022-05-28 | Outpatient (CLI) | payer BC, SELFPAY ==
--- NOTE | 2022-05-28 15:25 | RAD_ITS ---
STUDY: X-RAY CHEST REASON FOR EXAM: Male, 51 years old. One month history of dry cough. TECHNIQUE: PA and lateral views of the chest. COMPARISON: Comparison is made with prior study dated 09/10/2015. FINDINGS: The lungs are clear and expanded. There is no demonstrated pleural abnormality. Normal size heart. Normal mediastinum and alisa. Normal visualized pulmonary arteries. Normal visualized aortic arch and descending thoracic aorta. Normal visualized thoracic spine. Normal visualized ribs, clavicles, and shoulders. There is no demonstrated abnormality of the visualized soft tissue structures of the upper abdomen. RAD/Chest PA and Lateral IMPRESSION: Normal x-ray examination of the chest. Electronically Signed: Henry Diallo MD at 15:39 EST ,
== END | disposition home or self-care (01) ==
PROVIDERS: PCP Internal Medicine; Referring Provider Nurse Practitioner Family; Visit Provider Nurse Practitioner Family
DX: R05.9 Cough, unspecified (principal)
CPT/HCPCS: 71046

== ENCOUNTER → 2024-01-21 | Outpatient (CLI) | payer BC, SELFPAY ==
[2024-01-21 12:40] LABS: Absolute Lymphocyte Count 1.69 X10^3/uL (0.83-4.51); Absolute Neutrophil Count 2.3 X10^3/uL (2.0-7.7); Basophil# 0.03 X10^3/uL; Basophil% 0.6 % (0-1); Eosinophil# 0.43 X10^3/uL; Eosinophils% 8.9 % (0-5); Hemoglobin 14.6 g/dL (13.0-16.5); Lymphocyte # 1.69 X10^3/ul (0.83-4.51); Lymphocyte % 34.8 % (19-41); Mean Corp Hgb Conc 33.2 g/dL (32-36); Mean Corpuscular Hgb 28.1 pg (27.0-32.0); Mean Corpuscular Volume 84.6 fL (80-94); Mean Platelet Vol. 9.9 fl (6.2-12.0); Monocyte# 0.41 X10^3/uL; Monocyte% 8.5 % (0-10); NRBC Flagged by Analyzer 0 % (0-5); Neutrophil # 2.28 X10^3/uL (2.7-7.7); Platelet Count 239 K/mm3 (150-450); RBC Distribution Width CV 13.9 % (11.6-14.6); RBC Distribution Width SD 43.3 fl (35.1-43.9); White Blood Count 4.9 K/mm3 (4.4-11.0)
[2024-01-21 13:04] LABS: ALB/GLOB Ratio 0.9 RATIO (0.9-2.4); AST(SGOT) 20 U/L (15-37); Alanine Aminotransfer ALT/SGPT 26 U/L (16-61); Albumin, Serum 3.7 g/dL (3.2-5.0); Alkaline Phosphatase 79 U/L (45-117); Anion Gap 7 (5-15); BUN 12 mg/dL (7-18); BUN/Creat Ratio 11.5 RATIO (10-20); Calcium,Total 9.3 mg/dL (8.5-10.1); Chloride 108 mmol/L (98-107); Cholesterol 206 mg/dL (200); Creatinine, Serum 1.04 mg/dL (0.70-1.30); EST Glomerular Filtration Rate 80 mL/min (>60); Est Glom Filt Rate - Afr Amer 96 mL/min (>60); Globulin 4.1 g/dL (2.2-4.2); Glucose 107 mg/dL (74-106); High Density Lipoprotein 38 mg/dL; PSA,Total - Annual Screen 0.52 ng/mL (0.00-4.00); Potassium 4.3 mmol/L (3.5-5.1); Protein, Total 7.8 g/dL (6.4-8.2); Sodium Level 141 mmol/L (136-145); Triglycerides 157 mg/dL; Very Low Density Lipoprotein 31 mg/dL (5-40)
[2024-01-21 13:12] LABS: Microalbumin,Random Urine 20.9 mg/L (NO RANGE EST.)
== END | disposition home or self-care (01) ==
PROVIDERS: PCP Nurse Practitioner Family; Visit Provider Nurse Practitioner Family
DX: Z00.00 Encounter for general adult medical examination without abnormal findings (principal); E11.9 Type 2 diabetes mellitus without complications; Z12.5 Encounter for screening for malignant neoplasm of prostate
CPT/HCPCS: 36415; 80053; 80061; 82043; 84153; 84443; 85025; G0103

== ENCOUNTER → 2024-12-27 | Outpatient (CLI) | payer BC, SELFPAY ==
[2024-12-27 16:49] LABS: Hematocrit 43.8 % (40-54); Hemoglobin 14.9 g/dL (13.0-16.5); Immature Granulocytes Count 0.010 X10^3/uL (0.0-0.0); Mean Corp Hgb Conc 34.0 g/dL (32-36); Mean Corpuscular Volume 84.4 fL (80-94); Mean Platelet Vol. 9.7 fl (6.2-12.0); NRBC Flagged by Analyzer 0 % (0-5); Platelet Count 233 K/mm3 (150-450); RBC Distribution Width CV 14.1 % (11.6-14.6); RBC Distribution Width SD 42.9 fl (35.1-43.9); Red Blood Count 5.19 M/mm3 (4.6-6.2); White Blood Count 6.6 K/mm3 (4.4-11.0)
[2024-12-27 17:44] LABS: Microalbumin,Random Urine 23.7 mg/L (<20 mg/L)
[2024-12-27 17:53] LABS: AST(SGOT) 22 U/L (<=37); Alanine Aminotransfer ALT/SGPT 21 U/L (<=46); Albumin, Serum 4.2 g/dL (3.5-5.0); Alkaline Phosphatase 77 U/L (40-129); Anion Gap 13 (5-15); BUN 16 mg/dL (4-19); BUN/Creat Ratio 14.1 RATIO (10-20); Calcium,Total 9.2 mg/dL (7.6-11.0); Carbon Dioxide 22.2 mmol/L (21.0-32.0); Chloride 104 mmol/L (98-108); Cholesterol 204 mg/dL (<=200); Color, Urine Yellow (Yellow); Globulin 3.4 g/dL (2.2-4.2); Glucose 93 mg/dL (70-99); Glucose, Dipstick 1000 mg/dl (Normal); Ketone-Dipstick Negative (Negative); Leukocyte Esterase-Dipstick Negative /ul (Negative); Low Density Lipoprotein Calc. 131 mg/dL; Nitrite-Dipstick Negative (Negative); Occult Blood-Urine 150 /ul (Negative); Potassium 4.1 mmol/L (3.3-5.1); Protein-Dipstick 15 mg/dl (Negative); Specific Gravity, Urine 1.025 (1.002-1.030); Triglycerides 180 mg/dL; Urine Bilirubin Dipstick Negative (Negative); Very Low Density Lipoprotein 36 mg/dL (5-40); cholesterol:hdl ratio screen 5.54
--- OUTSIDE RECORDS SUMMARY | 2024-12-27 22:03 | XMS RPT_ITS | CCD ---
Author Organization [facility] Care Team Providers Care Quality Assurance Tech Name Role Phone Dr. Mckinley Villareal Primary Care Provider [phone] Dr. Mckinley Villareal Referring Provider [phone] Jay Jay [employer], [employer]-C Ronak Attending Provider [phone] Dr. Mckinley Villareal Primary Care Provider [phone] Dr. Mckinley Villareal Referring Provider [phone] ETHEL Helton Attending Provider Jay Jay [employer], [employer]-C Ronak Attending Provider [phone] Self, Referral Referring Unavailable COURTNEY OCHOA Attending Unavaila Ronak Alan Attending Unavailable Ronak Smith Primary Care Unavailable Medications Current Medications Medication Drug Class(es) Dates Sig (Normalized) Sig (Original) acetaminophen 325 mg oral tablet (3 sources) Start: 07-16-2021 take 1 tablet by mouth once Acetaminophen (Tylenol) 325 mg tablet Active 325 MG PO ONCE July 16, 2021 12:00am [id number] actuat albuterol 0.09 mg/actuat metered dose inhaler (1 source) beta2-Adrenergic Agonist Start: 04-30-2022 take 1 puff(s) by inhalation every six hours Albuterol Sulfate (Proair Hfa) 90 mcg/actuation HFA aerosol inhaler Active 1 - 2 PUFF INHALATION EVERY 6 HOURS 8.5 April 30, 2022 12:00am gabapentin 100 mg oral capsule (6 sources) Anti-epileptic Agent Start: 05-08-2020 End: 02-03-2021 take 100 mg by mouth three times daily Gabapentin Active 100 MG PO THREE TIMES A DAY June 13, 2020 10:05am meloxicam 15 mg oral tablet (11 sources) Nonsteroidal Anti-inflammatory Drug Start: 02-10-2022 End: 05-26-2022 take 15 mg by mouth once daily Meloxicam Active 15 MG PO DAILY May 26, 2022 11:48am STOP ALL OTHER NSAIDS Start: 01-13-2020 End: 05-08-2020 take 15 mg by mouth once daily Meloxicam Discontinued 15 MG PO DAILY January 12, 2020 11:00pm May 08, 2020 10:02am Start: 12-17-2018 End: 04-04-2019 take 1 tablet by mouth once daily Meloxicam (Mobic) 15 mg tablet Discontinued 15 MG PO DAILY December 16, 2018 11:00pm April 04, 2019 9:52am Stop all other NSAIDs methylPREDNISolone 4 mg oral tablet (7 sources) Corticosteroid Start: 04-30-2022 take 1 tablet by mouth once Methylprednisolone (Medrol (Gio)) 4 mg tablets,dose pack Active 0 PO per package directions April 30, 2022 12:00am PO PER PKG DIR Start: 10-04-2020 End: 07-16-2021 take 1 tablet by mouth once Methylprednisolone (Medrol (Gio)) 4 mg tablets,dose pack Discontinued 0 PO per package directions October 03, 2020 11:00pm July 16, 2021 9:36am PO PER PKG DIR Start: 07-01-2019 End: 07-06-2019 take 1 tablet by mouth once Methylprednisolone (Medrol (Gio)) 4 mg tablets,dose pack Discontinued 4 MG PO per package directions 28 09July 01, 2019 12:00am July 06, 2019 12:08am Tens Unit And Electrodes (3 sources) Start: 07-19-2020 Tens Unit And Electrodes Active 0 .ROUTE .MEDSUPPLY July 19, 2020 10:42am As directed Start: 07-19-2020 Tens Unit And Electrodes Active 0 .ROUTE .MEDSUPPLY July 19, 2020 12:00am As directed Start: 07-19-2020 Tens Unit And Electrodes Active 0 .ROUTE .MEDSUPPLY July 19, 2020 1:00am As directed Completed/Discontinued Medications Medication Drug Class(es) Dates Sig (Normalized) Sig (Original) amoxicillin 875 mg oral tablet (3 sources) Penicillin-class Antibacterial Start: 01-31-2020 End: 02-10-2020 take 875 mg by mouth twice daily Amoxicillin Discontinued 875 MG PO TWICE A DAY 27 02January 30, 2020 11:00pm February 09, 2020 11:03pm baclofen 10 mg oral tablet (6 sources) gamma-Aminobutyric Acid-ergic Agonist Start: 11-01-2019 End: 01-13-2020 take 10 mg by mouth at bedtime Baclofen Discontinued 10 MG PO AT BEDTIME December 09, 2019 1:59pm January 13, 2020 9:36am cholecalciferol 1.25 mg oral capsule (3 sources) Vitamin D Start: 07-17-2020 End: 10-04-2020 take 1250 ug by mouth every week Cholecalciferol (Vitamin D3) Discontinued 1250 MCG PO EVERY WEEK July 17, 2020 12:00am October 04, 2020 9:17am doxycycline hyclate 100 mg oral tablet (2 sources) Tetracycline-class Drug Start: 02-16-2022 End: 04-30-2022 take 100 mg by mouth once daily Doxycycline Hyclate Discontinued 100 MG PO DAILY 60 February 15, 2022 11:00pm April 30, 2022 9:04am start 1-2 days before malaria exposure, discontinue 4 weeks after exposure escitalopram 10 mg oral tablet (3 sources) Serotonin Reuptake Inhibitor Start: 08-12-2017 End: 08-24-2018 take 1 tablet by mouth once daily Escitalopram Oxalate (Lexapro) 10 mg tablet Discontinued 10 MG PO daily 60 August 11, 2017 11:00pm August 24, 2018 9:35am hydrOXYzine hydrochloride 25 mg oral tablet (3 sources) Antihistamine Start: 09-15-2019 End: 11-01-2019 take 25 mg by mouth twice daily Hydroxyzine Hcl Discontinued 25 MG PO TWICE A DAY September 14, 2019 11:00pm November 01, 2019 8:55am loratadine 10 mg oral tablet (3 sources) Start: 08-12-2013 End: 08-24-2018 take 10 mg by mouth once daily Loratadine Discontinued 10 MG PO DAILY August 11, 2013 11:00pm August 24, 2018 9:08am meclizine hydrochloride 12.5 mg oral tablet (3 sources) Antiemetic Start: 04-04-2019 End: 06-14-2019 Meclizine Discontinued 12.5 MG PO 2 to 3 times per day April 04, 2019 12:00am June 14, 2019 5:01pm omeprazole 40 mg delayed release oral capsule (20 sources) Proton Pump Inhibitor Start: 03-26-2020 End: 07-16-2021 take 40 mg by mouth once daily Omeprazole Discontinued 40 MG PO DAILY March 26, 2020 4:01pm June 13, 2020 10:06am Start: 10-08-2018 End: 11-01-2019 take 40 mg by mouth once daily Omeprazole Discontinued 40 MG PO DAILY 90 February 28, 2019 11:13am April 04, 2019 9:52am Start: 08-12-2017 End: 10-08-2018 take 40 mg by mouth once daily Omeprazole Discontinued 40 MG PO DAILY August 12, 2017 2:53pm October 08, 2018 12:56pm Start: 01-03-2017 End: 08-12-2017 take 20 mg by mouth once daily Omeprazole Discontinued 20 MG PO DAILY January 02, 2017 11:00pm August 12, 2017 2:53pm pantoprazole 40 mg delayed release oral tablet (6 sources) Proton Pump Inhibitor Start: 07-15-2019 End: 01-13-2020 take 40 mg by mouth once daily Pantoprazole Discontinued 40 MG PO DAILY 60 July 15, 2019 12:00am January 13, 2020 9:36am Start: 04-29-2017 End: 07-02-2017 take 40 mg by mouth once daily Pantoprazole Discontinu ed 40 MG PO DAILY 60 April 29, 2017 12:00am July 02, 2017 1:58pm predniSONE 10 mg oral tablet (13 sources) Start: 04-17-2022 End: 04-30-2022 take 10 mg by mouth twice daily Prednisone Discontinued 10 MG PO TWICE A DAY April 17, 2022 12:00am April 30, 2022 9:04am Start: 03-27-2020 End: 05-08-2020 Prednisone Discontinued 0 PO daily March 27, 2020 12:00am May 08, 2020 10:01am 4 tabs for 3 days, then 3 tabs for 3 days, then 2 tabs for 3 days, then 1 tab for 3 days PO QDAY; administer with food or milk Start: 11-22-2019 End: 12-04-2019 Prednisone Discontinued 10 M G PO daily 09 05November 21, 2019 11:00pm December 03, 2019 11:03pm Take 4 tabs once daily days 1-3 3 tabs once daily days 4-6 2 tabs once daily days 7-9 and 1 tab once daily days 10-12. Start: 09-15-2019 End: 11-01-2019 Prednisone Discontinued 0 PO daily September 14, 2019 11:00pm November 01, 2019 8:55am 4 tabs for 3 days, then 3 tabs for 3 days, then 2 tabs for 3 days, then 1 tab for 3 days PO QDAY; administer with food or milk Start: 08-24-2018 End: 12-17-2018 Prednisone Discontinued 0 PO daily August 23, 2018 11:00pm December 17, 2018 9:53am 4 tabs for 3 days, then 3 tabs for 3 days, then 2 tabs for 3 days, then 1 tab for 3 days PO QDAY; administer with food or milk sucralfate 1000 mg oral tablet (6 sources) Aluminum Complex Start: 07-15-2019 End: 11-01-2019 take 1 tablet by mouth four times daily Sucralfate Discontinued 0 .ROUTE .COMPLEX 120 September 26, 2019 9:45am November 01, 2019 8:55am TAKE 1 TABLET BY MOUTH 4 TIMES A DAY tiZANidine 2 mg oral tablet (3 sources) Central alpha-2 Adrenergic Agonist Start: 03-27-2020 End: 06-13-2020 take 2 mg by mouth at bedtime Tizanidine Discontinued 2 MG PO AT BEDTIME March 27, 2020 12:00am June 13, 2020 10:06am triamcinolone acetonide 40 mg/ml injectable suspension (4 sources) Corticosteroid Start: 11-22-2019 End: 11-22-2019 inject 10 mg by intramuscular injection once Kenalog (triamcinolone acetonide) 10 mg/mL suspension for injection Discontinued 10 MG IM ONCE November 22, 2019 10:59am November 22, 2019 11:46am Start: 12-24-2018 End: 01-03-2019 Triamcinolone Acetonide Disc ontinued 1 APPLIC TOPICAL TWICE A DAY 80 10 December 23, 2018 11:00pm January 02, 2019 11:07pm Problems Problem Classification Problem Date Documented Da te Episodic/Chronic Acute bronchitis (4 sources) Acute bronchitis; Translations: [Acute bronchitis, unspecified] 07-01-2019 Episodic Allergic reactions (3 sources) Irritant contact dermatitis due to plant; Translations: [Irritant contact dermatitis due to plants, except food] 11-22-2019 Episodic Anxiety disorders (3 sources) Mixed anxiety and depressive disorder; Translations: [Other specified anxiety disorders] 08-12-2017 Chronic Esophageal disorders (3 sources) Gastroesophageal reflux disease; Translations: [Gastro-esophageal reflux disease without esophagitis] 06-08-2019 Chronic Genitourinary symptoms and ill-defined conditions (3 sources) Dysuria; Translations: [Painful micturition, unspecified] 09-01-2017 Episodic Other gastrointestinal disorders (3 sources) Constipation; Translations: [Constipation, unspecified] 04-29-2017 Episodic Other male genital disorders (2 sources) Pain in testicle; Translations: [Testicular pain, unspecified] 12-11-2021 Episodic Other male genital disorders (1 source) Testicular pain, unspecified; Translations: [Unspecified disorder of male genital organs] Episodic Other non-traumatic joint disorders (3 sources) Ankle pain; Translations: [Pain in right ankle and joints of right foot] 10-04-2020 Episodic Other non-traumatic joint disorders (2 sources) Hip pain; Translations: [Pain in right hip] 12-11-2021 Episodic Other non-traumatic joint disorders (1 source) Pain in right hip; Translations: [Pain in joint, pelvic region and thigh] Episodic Other upper respiratory disease (3 sources) Seasonal allergic rhinitis; Translations: [Other seasonal allergic rhinitis] 07-02-2017 Chronic Other upper respiratory disease (3 sources) Disorder of upper respiratory system; Translations: [Disease of upper respiratory tract, unspecified] 07-02-2017 Episodic Other upper respiratory infections (2 sources) Upper respiratory infection; Translations: [Acute upper respiratory infection, unspecified] 04-17-2022 Episodic Otitis media and related conditions (3 sources) Acute secretory otitis media; Translations: [Other acute nonsuppurative otitis media, right ear] 01-31-2020 Episodic Spondylosis; intervertebral disc disorders; other back problems (3 sources) Chronic back pain ; Translations: [Dorsalgia, unspecified] Episodic Results Test Name Value Interpretation Reference Range Facility CBC W/Diff, Automatedon 01-09 Absolute Lymph 1.69 X10 3/uL Normal 0.83-4.[address] [facility] Comment on above: Performed By: #### L 500.4050, L501.9910, L501.9520, L500.4100, L100.0100, L502.0500 #### [facility] [address] [place], [address] Absolute Neut 2.3 X10 3/uL Normal 2.0-7.[address] [facility] Comment on above: Performed By: #### L 500.4050, L501.9910, L501.9520, L500.4100, L100.0100, L502.0500 #### [facility] [address] [place], [address] Basophils/100 WBC (Bld) 0.6 % Normal 0-[address] [facility] Comment on above: Performed By: #### L 500.4050, L501.9910, L501.9520, L500.4100, L100.0100, L502.0500 #### [facility] [address] [place], [address] Eosinophils/100 WBC (Bld) 8.9 % High 0-[address] [facility] Comment on above: Performed By: #### L 500.4050, L501.9910, L501.9520, L500.4100, L100.0100, L502.0500 #### [facility] [address] [place], [address] Erythrocyte distribution width (RBC) [Ratio] 13.9 % Normal 11.6-14.[address] [facility] Comment on above: Performed By: #### L 500.4050, L501.9910, L501.9520, L500.4100, L100.0100, L502.0500 #### [facility] [address] [place], [address] Hematocrit (Bld) [Volume fraction] 44.0 % Normal 40-[address] [facility] Comment on above: Performed By: #### L 500.4050, L501.9910, L501.9520, L500.4100, L100.0100, L502.0500 #### [facility] [address] [place], [address] Hemoglobin (Bld) [Mass/Vol] 14.6 g/dL Normal 13.0-16.[address] [facility] Comment on above: Performed By: #### L 500.4050, L501.9910, L501.9520, L500.4100, L100.0100, L502.0500 #### [facility] [address] [facility] [place], [address] IG% 0.200 Normal 0.0-0.[address] [facility] Comment on above: Result Comment: IG% - Immature Granulocytes (promyelocytes, myelocytes and metamyelocytes) > 1% indicates that a LEFT SHIFT is Present. Performed By: #### L 500.4050, L501.9910, L501.9520, L500.4100, L100.0100, L502.0500 #### [facility] [address] [place], [address] Lymphocytes/100 WBC (Bld) 34.8 % Normal 19-[address] [facility] Comment on above: Performed By: #### L 500.4050, L501.9910, L501.9520, L500.4100, L100.0100, L502.0500 #### [facility] [address] [place], [address] MCH (RBC) [Entitic mass] 28.1 pg Normal 27.0-32.[address] [facility] Comment on above: Performed By: #### L 500.4050, L501.9910, L501.9520, L500.4100, L100.0100, L502.0500 #### [facility] [address] [place], [address] MCHC (RBC) [Mass/Vol] 33.2 g/dL Normal 32-[address] [facility] Comment on above: Performed By: #### L 500.4050, L501.9910, L501.9520, L500.4100, L100.0100, L502.0500 #### [facility] [address] [place], [address] MCV (RBC) [Entitic vol] 84.6 fL Normal 80-[address] [facility] Comment on above: Performed By: #### L 500.4050, L501.9910, L501.9520, L500.4100, L100.0100, L502.0500 #### [facility] [address] [place], [address] Monocytes/100 WBC (Bld) 8.5 % Normal 0-[address] [facility] Comment on above: Performed By: #### L 500.4050, L501.9910, L501.9520, L500.4100, L100.0100, L502.0500 #### [facility] [address] [place], [address] Neutrophils/100 WBC (Bld) 47.0 % Normal 47-[address] [facility] Comment on above: Performed By: #### L 500.4050, L501.9910, L501.9520, L500.4100, L100.0100, L502.0500 #### [facility] [address] [place], [address] Nucleated RBC (Bld) [#/Vol] 0 10*3/uL Normal 0-[address] [facility] Comment on above: Performed By: #### L 500.4050, L501.9910, L501.9520, L500.4100, L100.0100, L502.0500 #### [facility] [address] [place], [address] Platelet mean volume (Bld) [Entitic vol] 9.9 fL Normal 6.2-12.[address] [facility] Comment on above: Performed By: #### L 500.4050, L501.9910, L501.9520, L500.4100, L100.0100, L502.0500 #### [facility] [address] [place], [address] Platelets (Bld) [#/Vol] 239 10*3/uL Normal 150-[address] [facility] Comment on above: Performed By: #### L 500.4050, L501.9910, L501.9520, L500.4100, L100.0100, L502.0500 #### [facility] [address] [place], [address] RBC (Bld) [#/Vol] 5.20 10*6/uL Normal 4.6-6.2 [facility] Comment on above: Performed By: #### L 500.4050, L501.9910, L501.9520, L500.4100, L100.0100, L502.0500 #### [facility] [address] [place], [address] RDW SD 43.3 fl Normal 35.1-43.[address] [facility] Comment on above: Performed By: #### L 500.4050, L501.9910, L501.9520, L500.4100, L100.0100, L502.0500 #### [facility] [address] [place], [address] WBC (Bld) [#/Vol] 4.9 10*3/uL Normal 4.4-11.0 [facility] Comment on above: Performed By: #### L 500.4050, L501.9910, L501.9520, L500.4100, L100.0100, L502.0500 #### [facility] [address] [place], [address] Comprehensive Metabolic Prof ilon 01-21-2024 Albumin [Mass/Vol] 3.7 g/dL Normal 3.2-5.[address] [facility] Comment on above: Performed By: #### L 500.4050, L501.9910, L501.9520, L500.4100, L100.0100, L502.0500 #### [facility] [address] [place], [address] Albumin/Globulin [Mass ratio] 0.9 {ratio} Normal 0.9-2.[address] [facility] Comment on above: Performed By: #### L 500.4050, L501.9910, L501.9520, L500.4100, L100.0100, L502.0500 #### [facility] [address] [place], [address] ALK P 79 U/L Normal 45-[address] [facility] Comment on above: Performed By: #### L 500.4050, L501.9910, L501.9520, L500.4100, L100.0100, L502.0500 #### [facility] [address] [place], [address] ALT [Catalytic activity/Vol] 26 U/L Normal 16-[address] [facility] Comment on above: Performed By: #### L 500.4050, L501.9910, L501.9520, L500.4100, L100.0100, L502.0500 #### [facility] [address] [place], [address] AST [Catalytic activity/Vol] 20 U/L Normal 15-[address] [facility] Comment on above: Performed By: #### L 500.4050, L501.9910, L501.9520, L500.4100, L100.0100, L502.0500 #### [facility] [address] [place], [address] Bilirubin [Mass/Vol] 0.70 mg/dL Normal 0.20-1.[address] [facility] Comment on above: Result Comment: For patients on eltrombopag therapy, use of Dimension [place] TBIL is not recommended. Performed By: #### L 500.4050, L501.9910, L501.9520, L500.4100, L100.0100, L502.0500 #### [facility] [address] [place], [address] BUN/CRE 11.5 RATIO Normal 10-[address] [facility] Comment on above: Performed By: #### L 500.4050, L501.9910, L501.9520, L500.4100, L100.0100, L502.0500 #### [facility] [address] [place], [address] CA,Total 9.3 mg/dL Normal 8.5-10.[address] [facility] Comment on above: Performed By: #### L 500.4050, L501.9910, L501.9520, L500.4100, L100.0100, L502.0500 #### [facility] [address] [place], [address] Chloride [Moles/Vol] 108 mmol/L High 98-[address] [facility] Comment on above: Performed By: #### L 500.4050, L501.9910, L501.9520, L500.4100, L100.0100, L502.0500 #### [facility] [address] [place], [address] CO2 [Moles/Vol] 26.0 mmol/L Normal 21.0-32.[address] [facility] Comment on above: Performed By: #### L 500.4050, L501.9910, L501.9520, L500.4100, L100.0100, L502.0500 #### [facility] [address] [place], [address] Creatinine [Mass/Vol] 1.04 mg/dL Normal 0.70-1.[address] [facility] Comment on above: Result Comment: The validity of the calculated GFR GFRAA in patients over 70 years has not been determined. Clinical correlation is essential. Performed By: #### L 500.4050, L501.9910, L501.9520, L500.4100, L100.0100, L502.0500 #### [facility] [address] [place], [address] EST GFR - AA 96 mL/min Normal >[address] [facility] Comment on above: Result Comment: Afri can [place] GFR Calc Performed By: #### L 500.4050, L501.9910, L501.9520, L500.4100, L100.0100, L502.0500 #### [facility] [address] [place], [address] GAP 7 Normal 5-[address] [facility] Comment on above: Performed By: #### L 500.4050, L501.9910, L501.9520, L500.4100, L100.0100, L502.0500 #### [facility] [address] [place], [address] GFR/1.73 sq M.predicted among non-blacks MDRD (S/P/Bld) [Vol rate/Area] 80 mL/min/{1.73_m2} Normal >[address] [facility] Comment on above: Result Comment: Non- GFR Calc Performed By: #### L 500.4050, L501.9910, L501.9520, L500.4100, L100.0100, L502.0500 #### [facility] [address] [place], [address] Globulin (S) [Mass/Vol] 4.1 g/dL Normal 2.2-4.[address] [facility] Comment on above: Performed By: #### L 500.4050, L501.9910, L501.9520, L500.4100, L100.0100, L502.0500 #### [facility] [address] [place], [address] Glucose [Mass/Vol] 107 mg/dL High 74-[address] [facility] Comment on above: Result Comment: Fast ing Glucose result from 100 to 125 mg/dL suggests IMPAIRED HOMEOSTASIS per A.D.A. criteria. Performed By: #### L 500.4050, L501.9910, L501.9520, L500.4100, L100.0100, L502.0500 #### [facility] [address] [place], [address] Potassium [Moles/Vol] 4.3 mmol/L Normal 3.5-5.[address] [facility] Comment on above: Performed By: #### L 500.4050, L501.9910, L501.9520, L500.4100, L100.0100, L502.0500 #### [facility] [address] [place], [address] Sodium [Moles/Vol] 141 mmol/L Normal 136-[address] [facility] Comment on above: Performed By: #### L 500.4050, L501.9910, L501.9520, L500.4100, L100.0100, L502.0500 #### [facility] [address] [place], [address] T PROT 7.8 g/dL Normal 6.4-8.[address] [facility] Comment on above: Performed By: #### L 500.4050, L501.9910, L501.9520, L500.4100, L100.0100, L502.0500 #### [facility] [address] [place], [address] Urea nitrogen [Mass/Vol] 12 mg/dL Normal 7-[address] [facility] Comment on above: Performed By: #### L 500.4050, L501.9910, L501.9520, L500.4100, L100.0100, L502.0500 #### [facility] [address] [place], [address] Lipid Profileon 01-21-2024 Cholesterol [Mass/Vol] 206 mg/dL High [address] [facility] Comment on above: Result Comment: <200 mg/dL Desirable 200-240 mg/dL Borderline >240 mg/dL High Risk Performed By: #### L 500.4050, L501.9910, L501.9520, L500.4100, L100.0100, L502.0500 #### [facility] [address] [place], [address] Cholesterol in HDL [Mass/Vol] 38 mg/dL Low [facility] Comment on above: Result Comment: The drugs N-Acetylcysteine and Metamizole may falsely depress this assay. Reference Range HDL <40 mg/dL Low HDL Cholesterol HDL >or= 60 mg/dL High HDL Cholesterol Performed By: #### L 500.4050, L501.9910, L501.9520, L500.4100, L100.0100, L502.0500 #### [facility] [address] [place], [address] Cholesterol in LDL [Mass/Vol] 137 mg/dL High 0-[address] [facility] Comment on above: Performed By: #### L 500.4050, L501.9910, L501.9520, L500.4100, L100.0100, L502.0500 #### [facility] [address] [place], [address] Cholesterol in VLDL [Mass/Vol] 31 mg/dL Normal 5-[address] [facility] Comment on above: Performed By: #### L 500.4050, L501.9910, L501.9520, L500.4100, L100.0100, L502.0500 #### [facility] [address] [place], [address] Triglyceride [Mass/Vol] 157 mg/dL Normal [facility] Comment on above: Result Comment: The drugs N-Acetylcysteine and Metamizole may falsely depress this assay. Serum Triglycerides Reference Interval Normal <150 mg/dL Borderline high 150 - 199 mg/dL High 200 - 499 mg/dL Very High > or = 500 mg/dL Performed By: #### L 500.4050, L501.9910, L501.9520, L500.4100, L100.0100, L502.0500 #### [facility] [address] [place], [address] Microalbumin,Random Urineon 01-21-2024 MICROALBUMIN,UR 20.9 mg/L Normal NO RANGE EST. [facility] Comment on above: Performed By: #### L 500.4050, L501.9910, L501.9520, L500.4100, L100.0100, L502.0500 #### [facility] [address] [place], [address] PSA,Total - Annual Screenon 01-21-2024 PSA,TOT SCREEN 0.52 ng/mL Normal 0.00-4.[address] [facility] Comment on above: Result Comment: This test was performed using the TPSA assay method for the [employer] chemistry system. Values obtained with different assay methods cannot be used interchangably. When changing PSA assays in the course of monitoring a patient, additional sequential testing should be carried out to confirm baseline values. Performed By: #### L 500.4050, L501.9910, L501.9520, L500.4100, L100.0100, L502.0500 #### [facility] [address] [place], [address] Thyroid Stim Hormone (TSH)on 01-21-2024 TSH 3.720 uIU/mL Normal 0.358-3.[address] [facility] Comment on above: Performed By: #### L 500.4050, L501.9910, L501.9520, L500.4100, L100.0100, L502.0500 #### [facility] [address] [place], [address] CBC W Auto Differential pane l (Bld)on 12-30-2022 Basophils (Bld) [#/Vol] 0.04 10*3/uL Normal <0.11 [facility] Comment on above: Order Comment: Speci men Type: BLOOD SPECIMEN Ordering Facility: [facility] Address: [address] [place] [address] Performed By: #### 5 7021-8 #### [facility] CLIA [id number] [address] [place] [address] [place] Basophils/100 WBC (Bld) 0.7 % Normal [facility] Comment on above: Order Comment: Speci men Type: BLOOD SPECIMEN Ordering Facility: [facility] Address: [address] [place] [address] Performed By: #### 5 7021-8 #### [facility] CLIA [id number] [address] [place] [address] [place] Differential cell count method Nom (Bld) Auto Normal [facility] Comment on above: Order Comment: Speci men Type: BLOOD SPECIMEN Ordering Facility: [facility] Address: [address] [place] [address] Performed By: #### 5 7021-8 #### [facility] CLIA [id number] [address] [place] [address] [place] Eosinophils (Bld) [#/Vol] 0.24 10*3/uL Normal <0.46 [facility] Comment on above: Order Comment: Speci men Type: BLOOD SPECIMEN Ordering Facility: [facility] Address: [address] [place] [address] Performed By: #### 5 7021-8 #### [facility] CLIA [id number] [address] [place] [address] [place] Eosinophils/100 WBC (Bld) 4.0 % Normal [facility] Comment on above: Order Comment: Speci men Type: BLOOD SPECIMEN Ordering Facility: [facility] Address: [address] [place] [address] Performed By: #### 5 7021-8 #### [facility] CLIA [id number] [address] [place] [address] [place] Erythrocyte distribution width (RBC) [Ratio] 14.2 % Normal 11.5-15.0 [facility] Comment on above: Order Comment: Speci men Type: BLOOD SPECIMEN Ordering Facility: [facility] Address: [address] [place] [address] Performed By: #### 5 7021-8 #### [facility] CLIA [id number] [address] [place] [address] [place] Hematocrit (Bld) [Volume fraction] 47.4 % Normal 39.0-51.0 [facility] Comment on above: Order Comment: Speci men Type: BLOOD SPECIMEN Ordering Facility: [facility] Address: [address] [place] [address] Performed By: #### 5 7021-8 #### [facility] CLIA [id number] [address] [place] [address] [place] Hemoglobin (Bld) [Mass/Vol] 15.1 g/dL Normal 13.0-17.0 [facility] Comment on above: Order Comment: Speci men Type: BLOOD SPECIMEN Ordering Facility: [facility] Address: [address] [place] [address] Performed By: #### 5 7021-8 #### [facility] CLIA [id number] [address] [place] [address] [place] Immature granulocytes (Bld) [#/Vol] 10*3/uL Normal <0.10 [facility] Comment on above: Order Comment: Speci men Type: BLOOD SPECIMEN Ordering Facility: [facility] Address: [address] [place] [address] Performed By: #### 5 7021-8 #### [facility] CLIA [id number] [address] [place] [address] [place] Immature granulocytes/100 WBC (Bld) 0.2 % Normal [facility] Comment on above: Order Comment: Speci men Type: BLOOD SPECIMEN Ordering Facility: [facility] Address: [address] [place] [address] Performed By: #### 5 7021-8 #### [facility] CLIA [id number] [address] [place] [address] [place] Lymphocytes (Bld) [#/Vol] 1.85 10*3/uL Normal 1.00-4.00 [facility] Comment on above: Order Comment: Speci men Type: BLOOD SPECIMEN Ordering Facility: [facility] Address: [address] [place] [address] Performed By: #### 5 7021-8 #### [facility] CLIA [id number] [address] [place] [address] [place] Lymphocytes/100 WBC (Bld) 30.5 % Normal [facility] Comment on above: Order Comment: Speci men Type: BLOOD SPECIMEN Ordering Facility: [facility] Address: [address] [place] [address] Performed By: #### 5 7021-8 #### [facility] CLIA [id number] [address] [place] [address] [place] MCH (RBC) [Entitic mass] 28.2 pg Normal 26.0-34.0 [facility] Comment on above: Order Comment: Speci men Type: BLOOD SPECIMEN Ordering Facility: [facility] Address: [address] [place] [address], [place] [address] Performed By: #### 5 7021-8 #### [facility] CLIA [id number] [address] [place] [address] [place] MCHC (RBC) [Mass/Vol] 31.9 g/dL Normal 30.5-36.0 [facility] Comment on above: Order Comment: Speci men Type: BLOOD SPECIMEN Ordering Facility: [facility] Address: [address] [place] [address] Performed By: #### 5 7021-8 #### [facility] CLIA [id number] [address] [place] [address] [place] MCV (RBC) [Entitic vol] 88.6 fL Normal 80.0-100.0 [facility] Comment on above: Order Comment: Speci men Type: BLOOD SPECIMEN Ordering Facility: [facility] Address: [address] [place] [address] Performed By: #### 5 7021-8 #### [facility] CLIA [id number] [address] [place] [address] [place] Monocytes (Bld) [#/Vol] 0.58 10*3/uL Normal <0.87 [facility] Comment on above: Order Comment: Speci men Type: BLOOD SPECIMEN Ordering Facility: [facility] Address: [address] [place] [address] Performed By: #### 5 7021-8 #### [facility] CLIA [id number] [address] [place] [address] [place] Monocytes/100 WBC (Bld) 9.6 % Normal [facility] Comment on above: Order Comment: Speci men Type: BLOOD SPECIMEN Ordering Facility: [facility] Address: [address] [place] [address] Performed By: #### 5 7021-8 #### [facility] CLIA [id number] [address] [place] [address] [place] Neutrophils (Bld) [#/Vol] 3.35 10*3/uL Normal 1.45-7.50 [facility] Comment on above: Order Comment: Speci men Type: BLOOD SPECIMEN Ordering Facility: [facility] Address: [address] [place] [address] Performed By: #### 5 7021-8 #### [facility] CLIA [id number] [address] [place] [address] [place] Neutrophils/100 WBC (Bld) 55.0 % Normal [facility] Comment on above: Order Comment: Speci men Type: BLOOD SPECIMEN Ordering Facility: [facility] Address: [address] [place] [address] Performed By: #### 5 7021-8 #### [facility] CLIA [id number] [address] [place] [address] [place] Nucleated RBC (Bld) [#/Vol] 10*3/uL Normal <0.01 [facility] Comment on above: Order Comment: Speci men Type: BLOOD SPECIMEN Ordering Facility: [facility] Address: [address] [place] [address] Performed By: #### 5 7021-8 #### [facility] CLIA [id number] [address] [place] [address] [place] Nucleated RBC/100 WBC (Bld) [Ratio] 0.0 /100 WBC Normal [facility] Comment on above: Order Comment: Speci men Type: BLOOD SPECIMEN Ordering Facility: [facility] Address: [address] [place] [address] Performed By: #### 5 7021-8 #### [facility] CLIA [id number] [facility] [place] [address] [place] Platelet mean volume (Bld) [Entitic vol] 10.5 fL Normal 9.0-12.7 [facility] Comment on above: Order Comment: Speci men Type: BLOOD SPECIMEN Ordering Facility: [facility] Address: [address] [place] [address] Performed By: #### 5 7021-8 #### [facility] CLIA [id number] [address] [place] [address] [place] Platelets (Bld) [#/Vol] 240 10*3/uL Normal 150-400 [facility] Comment on above: Order Comment: Speci men Type: BLOOD SPECIMEN Ordering Facility: [facility] Address: [address] [place] [address] Performed By: #### 5 7021-8 #### [facility] CLIA [id number] [address] [place] [address] [place] RBC (Bld) [#/Vol] 5.35 10*6/uL Normal 4.20-6.00 [facility] Comment on above: Order Comment: Speci men Type: BLOOD SPECIMEN Ordering Facility: [facility] Address: [address] [place] [address] Performed By: #### 5 7021-8 #### [facility] CLIA [id number] [address] [place] [address] [place] WBC (Bld) [#/Vol] 6.07 10*3/uL Normal 3.70-11.00 [facility] Comment on above: Order Comment: Speci men Type: BLOOD SPECIMEN Ordering Facility: [facility] Address: [address] [place] [address] Performed By: #### 5 7021-8 #### [facility] CLIA [id number] [address] [place] [address] [place] Comprehensive metabolic 2000 panelon 12-30-2022 Albumin [Mass/Vol] 4.2 g/dL Normal 3.9-4.9 [facility] Comment on above: Order Comment: Speci men Type: BLOOD SPECIMEN Ordering Facility: [facility] Address: [address] [place] [address] Performed By: #### 3 084-1, 90380-3, 96314-8, 3016-3 #### [facility] CLIA [id number] [address] [place] [address] [place] ALP [Catalytic activity/Vol] 75 U/L Normal 38-113 [facility] Comment on above: Order Comment: Speci men Type: BLOOD SPECIMEN Ordering Facility: [facility] Address: [address] [place] [address] Performed By: #### 3 084-1, 66153-7, 13262-1, 3016-3 #### [facility] CLIA [id number] [address] [place] [address] [place] ALT [Catalytic activity/Vol] 24 U/L Normal 10-54 [facility] Comment on above: Order Comment: Speci men Type: BLOOD SPECIMEN Ordering Facility: [facility] Address: [address] [place] [address] Performed By: #### 3 084-1, 63261-8, 64202-8, 3016-3 #### [facility] CLIA [id number] [address] [place] [address] [place] Anion gap [Moles/Vol] 11 mmol/L Normal 9-18 [facility] Comment on above: Order Comment: Speci men Type: BLOOD SPECIMEN Ordering Facility: [facility] Address: [address] [place] [address] Performed By: #### 3 084-1, 67719-9, 11519-3, 3016-3 #### [facility] CLIA [id number] [address] [place] [id number] [place] AST [Catalytic activity/Vol] 22 U/L Normal 14-40 [facility] Comment on above: Order Comment: Speci men Type: BLOOD SPECIMEN Ordering Facility: [facility] Address: [address] [place] [address] Performed By: #### 3 084-1, 47674-0, 15133-8, 3016-3 #### [facility] CLIA [id number] [address] [place] [address] [place] Bilirubin [Mass/Vol] 0.8 mg/dL Normal 0.2-1.3 [facility] Comment on above: Order Comment: Speci men Type: BLOOD SPECIMEN Ordering Facility: [facility] Address: [address] [place] [address] Performed By: #### 3 084-1, 13059-8, 73257-8, 3016-3 #### [facility] CLIA [id number] [address] [place] [address] [place] Calcium [Mass/Vol] 9.5 mg/dL Normal 8.5-10.2 [facility] Comment on above: Order Comment: Speci men Type: BLOOD SPECIMEN Ordering Facility: [facility] Address: [address] [place] [address] Performed By: #### 3 084-1, 39203-2, 42495-6, 3016-3 #### [facility] CLIA [id number] [address] [place] [address] [place] Chloride [Moles/Vol] 105 mmol/L Normal 97-105 [facility] Comment on above: Order Comment: Speci men Type: BLOOD SPECIMEN Ordering Facility: [facility] Address: [address] [place] [address] Performed By: #### 3 084-1, 71562-6, 78511-6, 3016-3 #### [facility] CLIA [id number] [address] [place], [place] [address] [place] CO2 [Moles/Vol] 27 mmol/L Normal 22-30 [facility] Comment on above: Order Comment: Agnieszka delgado Type: BLOOD SPECIMEN Ordering Facility: [facility] Address: [address] [place] [address] Performed By: #### 3 084-1, 58021-5, 47163-0, 3016-3 #### [facility] CLIA [id number] [address] [place] [address] [place] Creatinine [Mass/Vol] 1.22 mg/dL Normal 0.73-1.22 [facility] Comment on above: Order Comment: Agnieszka delgado Type: BLOOD SPECIMEN Ordering Facility: [facility] Address: [address] [place] [address], [place] [address] Performed By: #### 3 084-1, 20901-0, 50509-0, 6-3 #### [facility] CLIA [id number] [address] [place] [address] [place] Creatinine and Glomerular filtration rate.predicted panel (S/P/Bld) 72 mL/min/1.73m??? Normal >=60 [facility] Comment on above: Order Comment: Agnieszka delgado Type: BLOOD SPECIMEN Ordering Facility: [facility] Address: [address] [place] [address] Result Comment: Tracey mated Glomerular Filtration Rate (eGFR) is calculated using the 2020 CKD-EPI creatinine equation. This equation utilizes serum creatinine, sex, and age as parameters. The creatinine assay has traceable calibration to isotope dilution-mass spectrometry. Refer to KDIGO guidelines for clinical interpretation. In patients with unstable renal function, e.g. those with acute kidney injury, the eGFR may not accurately reflect actual GFR. Performed By: #### 3 084-1, 63860-0, 65420-5, 3016-3 #### [facility] CLIA [id number] [address] [address] [place] Glucose [Mass/Vol] 116 mg/dL High 74-99 [facility] Comment on above: Order Comment: Agnieszka delgado Type: BLOOD SPECIMEN Ordering Facility: [facility] Address: [address] [place] [address] Result Comment: The [place] Diabetes [employer] (ADA) provides guidance for cutoff values for fasting glucose and random glucose. The ADA defines fasting as no caloric intake for at least 8 hours. Fasting plasma glucose results between 100 to 125 mg/dL indicate increased risk for diabetes (prediabetes). Fasting plasma glucose results greater than or equal to 126 mg/dL meet the criteria for diagnosis of diabetes. In the absence of unequivocal hyperglycemia, results should be confirmed by repeat testing. In a patient with classic symptoms of hyperglycemia or hyperglycemic crisis, random plasma glucose results greater than or equal to 200 mg/dL meet the criteria for diagnosis of diabetes. Reference: Standards of Medical Care in Diabetes 2016, [place] [employer]. Diabetes Care. 2016.39(Suppl 1). Performed By: #### 3 084-1, 49301-2, 54399-0, 3016-3 #### [facility] CLIA [id number] [address] [place] [address] [place] Potassium [Moles/Vol] 4.7 mmol/L Normal 3.7-5.1 [facility] Comment on above: Order Comment: Agnieszka delgado Type: BLOOD SPECIMEN Ordering Facility: [facility] Address: [address] [place] [address] Performed By: #### 3 084-1, 40753-4, 01245-5, 3016-3 #### [facility] CLIA [id number] [address] [place] [address] [place] Protein [Mass/Vol] 7.0 g/dL Normal 6.3-8.0 [facility] Comment on above: Order Comment: Agnieszka delgado Type: BLOOD SPECIMEN Ordering Facility: [facility] Address: [address] [place] [address] Performed By: #### 3 084-1, 10289-0, 05999-3, 3016-3 #### [facility] CLIA [id number] [address] [place] [address] [place] Sodium [Moles/Vol] 143 mmol/L Normal 136-144 [facility] Comment on above: Order Comment: Reglai men Type: BLOOD SPECIMEN Ordering Facility: [facility] Address: [address] [place] [address] Performed By: #### 3 084-1, 29208-0, 40211-4, 3016-3 #### [facility] CLIA [id number] [address] [place] [address] [place] Urea nitrogen [Mass/Vol] 19 mg/dL Normal 9-24 [facility] Comment on above: Order Comment: Reglai men Type: BLOOD SPECIMEN Ordering Facility: [facility] Address: [address] [place] [address] Performed By: #### 3 084-1, 67907-5, 67991-0, 3016-3 #### [facility] CLIA [id number] [address] [place] [address] [place] Lipid 1996 panelon 3 Cholesterol [Mass/Vol] 209 mg/dL High <200 [facility] Comment on above: Order Comment: Reglai men Type: BLOOD SPECIMEN Ordering Facility: [facility] Address: [address] [place] [address] Result Comment: <200 mg/dL, Desirable 200-239 mg/dL, Borderline high >239 mg/dL, High Performed By: #### 3 084-1, 02849-5, 53772-5, 3016-3 #### [facility] CLIA [id number] [address] [place] [address] [place] Cholesterol in HDL [Mass/Vol] 34 mg/dL Low >39 [facility] Comment on above: Order Comment: Reglai men Type: BLOOD SPECIMEN Ordering Facility: [facility] Address: [address] [place] [address] Result Comment: 40-5 9 mg/dL, Acceptable >59 mg/dL, High: Negative risk factor for coronary heart disease <40 mg/dL, Low: Positive risk factor for coronary heart disease Performed By: #### 3 084-1, 95649-0, 36177-9, 6-3 #### [facility] CLIA [id number] [address] [facility] [address] [address] [place] Cholesterol in LDL [Mass/Vol] 145 mg/dL High <100 [facility] Comment on above: Order Comment: Speci men Type: BLOOD SPECIMEN Ordering Facility: [facility] Address: [address] [place] [address], [place] [address] Result Comment: <100 mg/dL, Optimal 100-129 mg/dL, Near optimal/above optimal 130-159 mg/dL, Borderline high 160-189 mg/dL, High >189 mg/dL, Very high Secondary prevention optimal LDL Cholesterol levels are recommended to be < 70 mg/dL Performed By: #### 3 084-1, 31061-1, 29564-7, 6-3 #### [facility] CLIA [id number] [address] [place] [address] [place] Cholesterol in LDL/Cholesterol in HDL [Mass ratio] 4.26 {ratio} High <2.54 [facility] Comment on above: Order Comment: Reglai men Type: BLOOD SPECIMEN Ordering Facility: [facility] Address: [address] [place] [address], [place] [address] Result Comment: Refe rence: 1. National Cholesterol Education Program ATP III Guideline At-A-Glance Quick Desk Reference: National Heart, Lung, and Blood [place]. National Institutes of Health. 2001: NIH Publication No. 01-3305. 2. An International Atherosclerosis Society position paper: global recommendations for the management of dyslipidemia: executive summary, Atherosclerosis. 2014: 232(2):410-413. Performed By: #### 3 084-1, 05908-7, 15731-5, 6-3 #### [facility] CLIA [id number] [address] [facility] [address] [address] [place] Cholesterol in VLDL [Mass/Vol] 30 mg/dL High <30 [facility] Comment on above: Order Comment: Speci men Type: BLOOD SPECIMEN Ordering Facility: [facility] Address: [address] [place] [address], [place] [address] Performed By: #### 3 084-1, 21901-0, 76217-6, 3016-3 #### [facility] CLIA [id number] [address] [place] [address] [place] Cholesterol non HDL [Mass/Vol] 175 mg/dL High <130 [facility] Comment on above: Order Comment: Speci men Type: BLOOD SPECIMEN Ordering Facility: [facility] Address: [address] [place] [address], [place] [address] Result Comment: <130 mg/dL, Optimal 130-159 mg/dL, Near optimal/above optimal 160-189 mg/dL, Borderline high 190-219 mg/dL, High >219 mg/dL, Very high Secondary prevention optimal non HDL Cholesterol levels are recommended to be <100 mg/dL Performed By: #### 3 084-1, 47450-5, 51655-0, 3016-3 #### [facility] CLIA [id number] [address] [place] [address] [place] Cholesterol.total /Cholesterol in HDL [Mass ratio] 6.15 {ratio} High <5.10 [facility] Comment on above: Order Comment: Speci men Type: BLOOD SPECIMEN Ordering Facility: [facility] Address: [address] [place] [address], [place] [address] Performed By: #### 3 084-1, 50943-5, 13245-8, 3016-3 #### [facility] CLIA [id number] [address] [place] [id number] [place] FASTING TIME 12hrs Normal [facility] Comment on above: Order Comment: Speci men Type: BLOOD SPECIMEN Ordering Facility: [facility] Address: [address] [place] [address], [place] [id number] Performed By: #### 3 084-1, 83202-1, 37376-9, 3016-3 #### [facility] CLIA [id number] [address] [place] [address] [place] Triglyceride [Mass/Vol] 150 mg/dL High <150 [facility] Comment on above: Order Comment: Speci men Type: BLOOD SPECIMEN Ordering Facility: [facility] Address: [address] [place] [address], [place] [address] Result Comment: <150 mg/dL, Normal 150-199 mg/dL, Borderline high 200-499 mg/dL, High >499 mg/dL, Very high Performed By: #### 3 084-1, 17706-0, 14797-5, 6-3 #### [facility] CLIA [id number] [address] [place] [address] [place] PSA/PROSTSPECAG SCRNon 12-30 Prostate specific Ag [Mass/Vol] 0.46 ng/mL Normal <2.60 [facility] Comment on above: Order Comment: Speci men Type: BLOOD SPECIMEN Ordering Facility: [facility] Address: [address] [place] [address], [place] [address] Result Comment: Tota l PSA test methodology used is the Electrochemiluminescence Immunoassay by [employer]. Total PSA values by differing methodologies cannot be interchanged. Performed By: #### P SAS1 #### [facility] CLIA [id number] [address] [place] [address] [place] TSH SerPl-aCncon 12-30-2022 TSH Qn 4.180 m[IU]/L Normal 0.270-4.200 [facility] Comment on above: Order Comment: Speci men Type: BLOOD SPECIMEN Ordering Facility: [facility] Address: [address] [place] [address], [place] [address] Performed By: #### 3 084-1, 77249-8, 66638-0, 6-3 #### [facility] CLIA [id number] [address] [place] [address] [place] Urate SerPl-mCncon 3 Urate [Mass/Vol] 6.8 mg/dL Normal 4.0-8.1 [facility] Comment on above: Order Comment: Speci men Type: BLOOD SPECIMEN Ordering Facility: [facility] Address: [address], [place] [address] Performed By: #### 3 084-1, 99082-2, 74258-0, 3016-3 #### [facility] CLIA [id number] [address] [place], [place] [address], [place] [address] [place] Absolute lymphocyte counton 07-16-2021 Lymphocytes Auto (Unsp spec) [#/Vol] 1.83 10*3/uL 0.83-4.[address] [facility] Work Phone: Basophil percentageon 2021 Basophils/100 WBC (Bld) 0.4 % 0-[address] [facility] Work Phone: Bilirubin [Mass/Vol] 0.70 mg/dL 0.20-1.[address] [facility] Work Phone: Comment on above: For patients on eltr ombopag therapy, use of Dimension [place] TBIL is not recommended. Chloride [Moles/Vol] 108 mmol/L 98-[address] [facility] Work Phone: Cholesterol [Mass/Vol] 201 mg/dL <[address] [facility] Work Phone: Comment on above: <200 mg/dL Desirable 200-240 mg/dL Borderline >240 mg/dL High Risk Eosinophils/100 WBC (Bld) 6.1 % 0-[address] [facility] Work Phone: Glucose [Mass/Vol] 120 mg/dL 74-[address] [facility] Work Phone: Comment on above: Fasting Glucose resu lt from 100 to 125 mg/dL suggests IMPAIRED HOMEOSTASIS per A.D.A. criteria. Neutrophils (Bld) [#/Vol] 2.7 10*3/uL 2.0-7.[address] [facility] Work Phone: Neutrophils/100 WBC (Bld) 50.0 % 47-[address] [facility] Work Phone: [phone] Potassium [Moles/Vol] 4.4 mmol/L 3.5-5.[address] [facility] Work Phone: [phone] Protein [Mass/Vol] 7.7 g/dL 6.4-8.[address] [facility] Work Phone: [phone] Sodium [Moles/Vol] 138 mmol/L 136-[address] [facility] Work Phone: [phone] Triglyceride [Mass/Vol] 435 mg/dL [facility] Work Phone: Comment on above: The drugs N-Acetylcy steine and Metamizole may falsely depress this assay. TRIGLYCERIDE IS GREATER THAN 400 mg/dL. LDL RESULT IS INVALID AND WILL NOT BE REPORTED.Serum Triglycerides Reference Interval Normal <150 mg/dL Borderline high 150 - 199 mg/dL High 200 - 499 mg/dL Very High > or = 500 mg/dL WBC (Bld) [#/Vol] 5.4 10*3/uL 4.4-11.0 [facility] Work Phone: Blood erythrocytes count (nu mber/volume)on 07-16-2021 RBC (Bld) [#/Vol] 5.12 10*6/uL 4.6-6.2 [facility] Work Phone: Blood hemoglobin measurement (mass/volume)on 07-16-2021 Hemoglobin (Bld) [Mass/Vol] 14.7 g/dL 13.0-16.[address] [facility] Work Phone: Blood lymphocytes/100 leukoc yteson 07-16-2021 Lymphocytes/100 WBC (Bld) 34.0 % 19-[address] [facility] Work Phone: [phone] Blood monocytes/100 leukocyt eson 07-16-2021 Monocytes/100 WBC (Bld) 9.3 % 0-[address] [facility] Work Phone: Blood platelet mean volumeon 07-16-2021 Platelet mean volume (Bld) [Entitic vol] 10.2 fL 6.2-12.[address] [facility] Work Phone: [phone] Determination of erythrocyte mean corpuscular volume (MCV)on 07-16-2021 MCV (RBC) [Entitic vol] 87.5 fL 80-[address] [facility] Work Phone: [phone] Hematocrit Auto (Bld) [Volum e fraction]on 07-16-2021 Hematocrit (Bld) [Volume fraction] 44.8 % 40-[address] [facility] Work Phone: [phone] Laboratory - Chemistry and C hemistry - challengeon 07-16-2021 ALP [Catalytic activity/Vol] 75 U/L 45-[address] [facility] Work Phone: [phone] ALT [Catalytic activity/Vol] 38 U/L 16-[address] [facility] Work Phone: [phone] CO2 [Moles/Vol] 28.0 mmol/L 21.0-32.[address] [facility] Work Phone: [phone] Globulin (S) [Mass/Vol] 4.1 g/dL 2.2-4.[address] [facility] Work Phone: [phone] Urea nitrogen/Creatini ne [Mass ratio] 10.5 mg/mg 10-[address] [facility] Work Phone: [phone] Laboratory - Hematology and Cell countson 07-16-2021 Erythrocyte distribution width (RBC) [Entitic vol] 44.0 fL 35.1-43.[address] [facility] Work Phone: [phone] Erythrocyte distribution width (RBC) [Ratio] 13.8 % 11.6-14.[address] [facility] Work Phone: [phone] Immature granulocytes/100 WBC (Bld) 0.200 % 0.0-0.[address] [facility] Work Phone: [phone] Comment on above: IG% - Immature Granu locytes (promyelocytes, myelocytes and metamyelocytes) > 1% indicates that a LEFT SHIFT is Present. MCH (RBC) [Entitic mass] 28.7 pg 27.0-32.[address] [facility] Work Phone: [phone] Nucleated RBC/100 WBC (Bld) [Ratio] 0 % 0-[address] [facility] Work Phone: [phone] MCHC Auto (RBC) [Mass/Vol]on 07-16-2021 MCHC (RBC) [Mass/Vol] 32.8 g/dL 32-[address] [facility] Work Phone: No Panel Informationon 07-16 Estimated GFR (MDRD) Amer 79 mL/min >[address] [facility] Work Phone: [phone] Comment on above: GFR Calc Estimated GFR (MDRD) Non-Af Amer 66 mL/min >[address] [facility] Work Phone: [phone] Comment on above: Non- GFR Calc Prostate Specific Antigen Screen 0.40 ng/mL 0.00-4.[address] [facility] Work Phone: Comment on above: This test was perfor med using the TPSA assay method for [employer] chemistry system. Values obtained with differentassay methods cannot be used interchangably.When changing PSA assays in the course of monitoring apatient, additional sequential testing should be carriedout to confirm baseline values. Thyroid Stimulating Hormone (TSH) 2.67 uIU/mL 0.358-3.[address] [facility] Work Phone: [phone] Platelets bldon 07-16-2021 Platelets (Bld) [#/Vol] 255 10*3/uL 150-[address] [facility] Work Phone: [phone] Serum or plasma albumin day urement (mass/volume)on 07-16-2021 Albumin [Mass/Vol] 3.6 g/dL 3.2-5.[address] [facility] Work Phone: [phone] Serum or plasma albumin/glob ulin mass ratioon 07-16-2021 Albumin/Globulin [Mass ratio] 0.9 {ratio} 0.9-2.[address] [facility] Work Phone: [phone] Serum or plasma calcium day urement (mass/volume)on 07-16-2021 Calcium [Mass/Vol] 8.9 mg/dL 8.5-10.[address] [facility] Work Phone: [phone] Serum or plasma cholesterol in HDL measurement (mass/volume)on 07-16-2021 Cholesterol in HDL [Mass/Vol] 26 mg/dL [facility] Work Phone: Comment on above: The drugs N-Acetylcy steine and Metamizole may falsely depress this assay. Reference Range HDL <40 mg/dL Low HDL Cholesterol HDL >or= 60 mg/dL High HDL Cholesterol Serum or plasma cholesterol in VLDL measurement (mass/volume)on 07-16-2021 Cholesterol in VLDL [Mass/Vol] [facility] Work Phone: Comment on above: Test not performed Serum or plasma creatinine m easurement (mass/volume)on 07-16-2021 Creatinine [Mass/Vol] 1.24 mg/dL 0.70-1.[address] [facility] Work Phone: Comment on above: The validity of the calculated GFR & GFRAA in patients over 70 years has not been determined. Clinical correlation is essential. Serum or plasma low density lipoprotein (LDL) cholesterol measurement (mass/volume)on 07-16-2021 Cholesterol in LDL [Mass/Vol] [facility] Work Phone: Comment on above: Test not performed Serum or plasma urea nitroge n measurement (mass/volume)on 07-16-2021 Urea nitrogen [Mass/Vol] 13 mg/dL 7-[address] [facility] Work Phone: Thin prep Papanicolaou smear with manual screeningon 07-16-2021 Thin prep Papanicolaou smear with manual screening 19 U/L 15-[address] [facility] Work Phone: [phone] Thin prep Papanicolaou smear with manual screening 2 5-[address] [facility] Work Phone: [phone] MRI LUMBAR SPINE WO IVCONon 06-04-2020 MRI LUMBAR SPINE WO IVCON * * *Final Report* * * DATE OF EXAM: Jun 04 2020 7:57AM [facility] 0303 - MRI LUMBAR SPINE WO IVCON / PROCEDURE REASON: M54.16 RADICULOPATHY,LUMABR REGION * * * * Physician Interpretation * * * * EXAMINATION: MRI LUMBAR SPINE WO IVCON CLINICAL HISTORY: Low back pain radiating to groin for the last year. TECHNIQUE: Routine lumbosacral spine MR protocol without gadolinium. MQ: [id number] COMPARISON: None. RESULT: Counting reference: Lumbosacral junction. For the purposes of this report, L4-5 is considered the level of the iliac crest and there are 5 lumbar-type vertebrae. Anatomic variant: Transitional L5 vertebral body. Localizer images: Alignment: Alignment is anatomic. Bone marrow signal/fracture: No evidence of pathologic marrow infiltration. No evidence of prior fracture. Conus: The conus is within normal limits of signal intensity and morphology. Paraspinal soft tissues: Paraspinal soft tissues are within normal limits. Lower thoracic spine: Visualized lower thoracic canal and foramina are patent. T12-L1: Canal and foramina are patent. L1-L2: Small right sided protrusion (series 4 image 9) causes mild narrowing of the spinal canal. The foramina are patent. L2-L3: Canal and foramina are patent L3-L4: Canal and foramina are patent L4-L5: Canal is patent. Mild right and moderate left neuroforaminal stenosis. L5-S1: Canal and foramina are patent Sacrum and iliac wings: The visualized sacrum and iliac wings are within normal limits. IMPRESSION: Small right paracentral protrusion at L1-L2. Moderate left neuroforaminal stenosis at left L4-5. Anatomic Thoracic/Lumbar Variant: Transitional L5 vertebral body. L4-5 is considered the level of the iliac crest and there are 5 lumbar-type vertebrae. Program Or Project Administrator: [facility] Transcribe Date/Time: Jun 04 2020 8:44A Dictated by : ESTRADA BARAHONA MD This examination was interpreted and the report reviewed and electronically signed by: ESTRADA BARAHONA MD on Jun 04 2020 8:47AM EST [id number] [facility] PROGRESSon 06-04-2020 PROGRESS HNO ID: [id number] Author: Dedrick Cervantes (Tech) Service: Radiology Author Type: Digital Technician Type: Progress Notes Filed: 06/04/2020 7:37 AM Note Text: Radiology Service Progress Note PATIENT NAME: Sánchez Saunders DATE OF SERVICE: June 04, 2020 TIME: 7:36 AM PATIENT IDENTITY VERIFICATION COMPLETED USING TWO (2) IDENTIFIERS: Name and Date of confirmed by patient verbally and Name and Date of confirmed by identification band. FALL SCREENING: Has the patient had 2 falls in the last year or 1 fall with injury or currently using an Ambulatory Assistive Device (Walker, Cane, Wheelchair, Crutches, etc.)? No PATIENT GENDER DATA: Male PATIENT RELEVANT IMPLANT DATA REVIEWED: Yes RADIOLOGY DEPARTMENT: MR; Exam(s) Completed: Spine: Lumbar spine PERIPHERAL IV DATA: Not applicable SIGNED BY: Edyta Orr manager product management June 04, 2020 7:36 AM [facility] Vital Signs Date Time Vital Sign Value Performing Clinician Faci lity 04-30-2022 09:02-0500 Body height 167.[address] Mckinley Villareal Work Phone: [facility] 04-30-2022 09:02-0500 Body mass index (BMI) [Ratio] 36.1 kg/m2 Dr. Mckinley Villareal Work Phone: [facility] 04-30-2022 09:02-0500 Body temperature 97.7 [degF] Dr. Mckinley Villareal Work Phone: [facility] 04-30-2022 09:02-0500 Body weight 101.[address] Mckinley Villareal Work Phone: [facility] 04-30-2022 09:02-0500 Diastolic blood pressure 74 mm[Hg] Dr. Mckinley Villareal Work Phone: [facility] 04-30-2022 09:02-0500 Heart rate 87 /min Dr. Mckinley Villareal Work Phone: [facility] 04-30-2022 09:02-0500 SaO2% (BldA) [Mass fraction] 98 % Dr. Mckinley Villareal Work Phone: [facility] 04-30-2022 09:02-0500 Systolic blood pressure 110 mm[Hg] Dr. Mckinley Villareal Work Phone: [facility] 04-17-2022 14:38-0500 Body temperature 98.6 [degF] Dr. Mckinley Villareal Work Phone: [facility] 04-17-2022 14:38-0500 Diastolic blood pressure 88 mm[Hg] Dr. Mckinley Villareal Work Phone: [facility] 04-17-2022 14:38-0500 Heart rate 84 /min Dr. Mckinley Villareal Work Phone: [facility] 04-17-2022 14:38-0500 Respiratory rate 20 /min Dr. Mckinley Villareal Work Phone: [facility] 04-17-2022 14:38-0500 SaO2% (BldA) [Mass fraction] 98 % Dr. Mckinley Villareal Work Phone: [facility] 04-17-2022 14:38-0500 Systolic blood pressure 132 mm[Hg] Dr. Mckinley Villareal Work Phone: [facility] 12-11-2021 09:54-0400 Body height 167.[address] Mckinley Villareal Work Phone: [facility] Work Phone: 12-11-2021 09:54-0400 Body mass index (BMI) [Ratio] 35.3 kg/m2 Dr. Mckinley Villareal Work Phone: [facility] Work Phone: 12-11-2021 09:54-0400 Body weight 99.[address] Mckinley Villareal Work Phone: [facility] Work Phone: 12-11-2021 09:54-0400 Diastolic blood pressure 76 mm[Hg] Dr. Mckinley Villareal Work Phone: [facility] Work Phone: 12-11-2021 09:54-0400 Heart rate 76 /min Dr. Mckinley Villareal Work Phone: [facility] Work Phone: 12-11-2021 09:54-0400 Respiratory rate 18 /min Dr. Mckinley Villareal Work Phone: [facility] Work Phone: 12-11-2021 09:54-0400 Systolic blood pressure 128 mm[Hg] Dr. Mckinley Villareal Work Phone: [facility] Work Phone: 07-16-2021 08:41-0500 Body height 167.[address] Mckinley Villareal Work Phone: [facility] Work Phone: 07-16-2021 08:41-0500 Body mass index (BMI) [Ratio] 36.6 kg/m2 Dr. Mckinley Villareal Work Phone: [facility] Work Phone: 07-16-2021 08:41-0500 Body temperature 97.5 [degF] Dr. Mckinley Villareal Work Phone: [facility] Work Phone: 07-16-2021 08:41-0500 Body weight 102.[address] Mckinley Villareal Work Phone: [facility] Work Phone: 07-16-2021 08:41-0500 Diastolic blood pressure 86 mm[Hg] Dr. Mckinley Villareal Work Phone: [facility] Work Phone: 07-16-2021 08:41-0500 Heart rate 81 /min Dr. Mckinley Villareal Work Phone: [facility] Work Phone: 07-16-2021 08:41-0500 Respiratory rate 14 /min Dr. Mckinley Villareal Work Phone: [facility] Work Phone: 07-16-2021 08:41-0500 SaO2% (BldA) [Mass fraction] 97 % Dr. Mckinley Villareal Work Phone: [facility] Work Phone: 07-16-2021 08:41-0500 Systolic blood pressure 122 mm[Hg] Dr. Mckinley Villareal Work Phone: [facility] Work Phone: Encounters Encounter Date Encounter Type Care Provider Facility Start: 01-27-2024 Encounter for genera l adult medical examination without abnormal findings [facility] Start: 01-21-2024 End: 01-21-2024 ambulatory [facility] Facility:[facility] Start: 12-15-2022 ambulatory Referral Self Facility: [facility] Start: 05-28-2022 End: 05-28-[address] Mckinley Villareal Work Phone: [facility] Work Phone: Start: 05-28-2022 End: 05-28-[address] Mckinley Vilalreal Work Phone: [facility] Start: 04-30-2022 End: 04-30-[address] Mckinley Villareal Work Phone: [facility] Start: 04-17-2022 End: 04-17-[address] Mckinley Villareal Work Phone: [facility] Start: 02-11-2022 End: 02-11-[address] Mckinley Villareal Work Phone: [facility] Work Phone: Start: 02-11-2022 End: 02-11-[address] [facility] Start: 12-11-2021 End: 12-11-[address] Mckinley Villareal Work Phone: [facility] Start: 07-16-2021 End: 07-16-[address] Mckinley Villareal Work Phone: [facility] Start: 07-16-[address] Nigel Villareal Work Phone: [facility] Start: 07-16-2021 End: 07-16-2021 Encounter for general adult medical examination without abnormal findings Dr. Mckinley Villareal Work Phone: [facility] Start: 07-16-2021 End: 07-16-[address] Mckinley Villareal Work Phone: [facility] Procedures Date Procedure Procedure Detail Performing Clinician Start: 05-28-2022 Plain chest X-ray Dr. Nigel Villareal Work Phone: Start: 02-11-2022 Ultrasound of scrotu m with Doppler and color flow imaging Dr. Mckinley Villareal Work Phone: Start: 12-11-2021 Plain x-ray of pelvi s and lower extremity Dr. Mckinley Villareal Work Phone: Plan of Treatment Date Care Activity Detail Author Start: 07-16-2021 Patient referral [facility] Work Phone: Patient referral [facility] Work Phone: Payers Date Payer Category Payer Self-pay [id number] 2024 Unknown [id number] 1970 [id number] Unknown [id number] Unknown [id number] Social History Date Type Detail Facility Start: 07-16-2021 End: 04-30-2022 Tobacco smoking status NHIS Unknown if ever smoked [facility] Start: 07-13-2019 Non-smoker [facility] Start: 1970 Sex Assigned At Male [facility] Evaluation note Note Date & Type Note Facility Evaluation note Diagnosis Onset Date 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 Work Phone: Evaluation note Note Date & Type Note Facility Evaluation note Diagnosis Onset Date URI (upper respiratory infection) acute Acute bronchitis acute [facility] Work Phone: Hospital Discharge instructions Note Date & Type Note Facility Hospital Discharge instructions [facility] Work Phone: Summary Purpose Family History No Family History Records Found Relationship Condition Age at Onset Recorded Date/T dewayne mother Asthma Unknown Hypertension Unknown father Kidney disorder Unknown Cerebrovascular accident (CVA) Unknown daughter Asthma Unknown Advance Directives No Advanced Directives Records Found Advance Directive Response Recorded Date/ Time Advance Directives No July 11 12:06pm Living Will No July 11, 2020 12:06pm Power of Assistant City Attorney No July 11 12:06pm Advance Directive Response Recorded Date/ Time Advance Directives No July 11 11:06am Living Will No July 11, 2020 11:06am Power of Assistant City Attorney No July 11 11:06am Chief Complaint and Reason for Visit Chief Complaint YEARLY TITO Reason for Visit Encounter for [facility] adult health care examination Chief Complaint PAIN IN GROIN AREA E ORDER TESTI PAIN Reason for Visit Chronic pain in test icle Chronic back pain Chronic hip pain, bilateral Chief Complaint TESTI PAIN SORE THROAT, RT EAR PAIN, COUGH COUGH, NOT FEEL WELL EORDER Reason for Visit URI (upper respirato ry infection) Acute bronchitis Additional Source Comments (unrecognized sect ion and content) No Status Records FoundNo Status Records FoundNo Status Records FoundNo Status Records Found INFORMATION SOURCE (unrecogn ized section and content) DATE CREATED AUTHOR 06/04/2020 [facility] DATE CREATED AUTHOR AUTHOR'S ORGANIZ ATION 12/16/2022 [facility] DATE CREATED AUTHOR AUTHOR'S ORGANIZ ATION 12/31/2022 [facility] DATE CREATED AUTHOR AUTHOR'S ORGANIZ ATION 01/29/2024 [facility] Goals (unrecognized section and content) Goals may be documented in a n alternate sectionGoals may be documented in an alternate sectionGoals may be documented in an alternate section Care Teams (unrecognized sec tion and content) Team Status: Active Member Role Status Dates Dr. Mckinley Villareal MD Family Provider Active Dr. Mckinley Villareal MD Primary Care Provider Active Team Status: Inactive Member Role Status Dates Dr. Mckinley Villareal MD Primary Care Provider, Refer ring Provider Active Todd Miller PA, PA Attending Provider Active Team Status: Inactive Member Role Status Dates Dr. Mckinley Villareal MD Primary Care Provider, Refer ring Provider Active Ronak Goyal NP, [employer] Attending Provider Active Team Status: Inactive Member Role Status Dates Dr. Mckinley Villareal MD Primary Care Provider Active Ronak Goyal NP, [employer] Attending Provider Active Team Status: Inactive Member Role Status Dates Dr. Mckinley Villareal MD Primary Care Provider Active Ronak Goyal NP, [employer] Attending Provider, Referring Prov ider Active FOR RECORDS PERTAINING TO PATIENTS WHO ARE OR HAVE BEEN ENROLLED IN A CHEMICAL DEPENDENCY/SUBSTANCEABUSE PROGRAM, SOME INFORMATION MAY BE OMITTED. This clinical summary was aggregated from multiple sources. Caution should be exercised in using it in the provision of clinical care. This summary normalizes information from multiple sources, and as a consequence, information in this document may materially change the coding, format and clinical context of patient data. In addition, data may be omitted in some cases. CLINICAL DECISIONS SHOULD BE BASED ON THE PRIMARY CLINICAL RECORDS. [employer] [facility]. provides no warranty or guarantee of the accuracy or completeness of information in this document.
== END | disposition home or self-care (01) ==
LOC: VSLAB 14:05
PROVIDERS: PCP Nurse Practitioner Family
DX: E11.9 Type 2 diabetes mellitus without complications (principal); E78.2 Mixed hyperlipidemia
CPT/HCPCS: 36415; 80053; 80061; 81002; 82043; 84443; 85025

== ENCOUNTER → 2025-01-03 | Outpatient (CLI) | payer BC, SELFPAY ==
[2025-01-03 14:44] LABS: Mucous, Urine 0 SEEN /hpf (<or=2+); Squamous Epithelial Cells - UA 0 SEEN /hpf (0-5)
[2025-01-03 16:39] LABS: Color, Urine Yellow (Yellow); Glucose, Dipstick 1000 mg/dl (Normal); Ketone-Dipstick Negative (Negative); Leukocyte Esterase-Dipstick Negative /ul (Negative); Nitrite-Dipstick Negative (Negative); Occult Blood-Urine 25 /ul (Negative); Protein-Dipstick 15 mg/dl (Negative); Specific Gravity, Urine 1.020 (1.002-1.030); Urine Bilirubin Dipstick Negative (Negative)
[2025-01-03 17:12] LABS: T4 Total, Thyroxin 6.8 ug/dL (4.5-12.1)
[2025-01-03 17:15] LABS: Red Blood Cells-Urine 0-5 SEEN /hpf (0-5)
== END | disposition home or self-care (01) ==
LOC: VSLAB 14:43
PROVIDERS: PCP Nurse Practitioner Family
DX: R31.29 Other microscopic hematuria (principal); R94.6 Abnormal results of thyroid function studies
CPT/HCPCS: 36415; 81001; 84436; 84439; 84443; 86376; 86800